=== PATIENT | female | born 1940 | race African-American/Black ===

== ENCOUNTER 2022-06-03 15:17 | Emergency (ER) | payer OTHER ==
--- OUTSIDE RECORDS SUMMARY | 2022-06-03 15:33 | XMS REPORT | Continuity of Care Document ---
:1940 Author Organization [facility] t Address [address] [place] [address] Care Team Providers Name Role Phone Génesis GROVES, Virgen Morales Primary Care Physician [phone] Paddy Gregory MD Attending Clinician Génesis GROVES, Virgen Morales Attending Clinician Kasie Shell LVN Attending Clinician Unavailable Nena GROVES, Dhiraj Nickerson Attending Clinician Herbert GROVES, Jorge Luis Topete Attending Clinician Marlyn Nguyen Attending Clinician Unavailable Arturo Longoria MD Attending Clinician Becker MD, Paul Christensen Attending Clinician [phone] Joni Ellington MD Attending Clinician Poonam Degroot DO Attending Clinician Marlin Carver MA Attending Clinician Unavailable Doretha Hernandez MA Attending Clinician Unavailable Sheila Santana MA Attending Clinician Unavailable Susy Shell MA Attending Clinician Unavailable Lane Hinkle MD Attending Clinician Medardo Jett LCSW Attending Clinician Unavailable Dwayne Cast, Chitra Sharp Attending Clinician Deisy Ramírez MA Attending Clinician Unavailable Vince Uriostegui MD Attending Clinician Angel Ross Attending Clinician Unavailable Rod_S_AH Attending Clinician Unavailable Dianneo_A_AH Attending Clinician Unavailable RANJIT FU Attending Clinician Unavailable JUVE WHITE Attending Clinician Unavailable MD JUVE WHITE Attending Clinician Unavailable MOHINI NINO Attending Clinician Unavailable JONI ELLINGTON Admitting Clinician Unavailable MD PAUL BECKER Admitting Clinician Unavailable MckaylaS_BOB Admitting Clinician Unavailable Araceli_A_AH Admitting Clinician Unavailable JUVE WHITE Admitting Clinician Unavailable MD JUVE WHITE Admitting Clinician Unavailable MOHINI NINO Admitting Clinician Unavailable Payers Payer Name Policy Type Policy Number Effective Date Expiration Date S [facility] [place] - [id number] 7212-01-01 [employer] 00:00:00 (MEDICARE REPLACEMENT/ADVANT AGE - HMO) Problems Condition Condition Condition Status Onset Resolution Last Treating Co mments Source Name Details Category Date Date Treatment Clinician Date Need for Need for Disease Active 2020-09 Metho di vaccinatio vaccinatio 0 [address] n n 00:00: Hospita 00 l Gastroesop Gastroesop Disease Active 2020-09 M ethodi hageal hageal 0 st reflux reflux 00:00: Hospita disease disease 00 l without without esophagiti esophagiti s s Finger Finger Disease Active [facility] clubbing clubbing 05-23 st 00:00: Hospita 00 l Obstructiv Obstructiv Disease Active M ethodi e sleep e sleep 05-23 apnea apnea 00:00: Hospita 00 l Vitamin D Vitamin D Disease Active Met hodi deficiency deficiency 05-26 st 00:00: Hospita 00 l Vitamin Vitamin Disease Active [facility] B12 B12 9 st deficiency deficiency 00:00: Ho spita 00 l Coronary Coronary Problem Active Roy ge arterioscl Arterioscl 4-24 Fa kim erosis erosis 00:00: Practic 00 e Arthritis Arthritis Problem Active Ciara umm 4-24 Family 00:00: Practic 00 e Arthritis Arthritis Disease Active Met hodi of right of right 2-02 st knee knee 00:00: Hospita 00 l History of History of Disease Active 2020-0 M ethodi total knee total knee 2-02 st arthroplas arthroplas 00:00: Ho spita ty, left ty, left 00 l 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 umm major Major 2 Family depression Depression 00:00: Pr actic 00 e Hyperlipid Hyperlipid Problem Active 2018-09 V illage emia emia 09-21 Family 00:00: Practic 00 e Congestive Congestive Problem Active 2018-09 V illage heart Heart 09-21 Family failure Failure 00:00: Practic 00 e Gastroesop Gastroesop Problem Active 2018-09 V illage hageal hageal 09-21 Family reflux Reflux 00:00: Practic disease Disease 00 e Status Status Disease Active 2018-09 Methodi post left post left 0-25 st knee knee 00:00: Hospita replacemen replacemen 00 l t t Arthritis Arthritis Disease Active 2018-09 Met hodi of left of left 0-03 st knee knee 00:00: Hospita 00 l Chronic Chronic Disease Active [facility]i constipati constipati 8-07 st on on 00:00: Hospita 00 l Primary Primary Disease Active Methodi osteoarthr osteoarthr 8-07 st itis of itis of 00:00: Hospita both knees both knees 00 l Acute pain Acute pain Disease Active 2017-09 M ethodi of right of right 0-26 st shoulder shoulder 00:00: Hospit a 00 l Primary Primary Disease Active 2017-09 Methodi osteoarthr osteoarthr 0-26 st itis of itis of 00:00: Hospita right right 00 l shoulder shoulder Granulomat Granulomat Disease Active 2017-09 M ethodi ous ous 0-17 st gastritis gastritis 00:00: Hosp tk 00 l Chronic Chronic Disease Active 2017-09 Methodi gastritis gastritis 0-17 st without without 00:00: Hospita bleeding bleeding 00 l Ventral Ventral Disease Active Last Methodi hernia hernia 9-[address] without without 00:00: t & Plan: Hospi ta obstructio obstructio 00 Formattin l n or n or g of this gangrene gangrene note might be different from the original. The patient has a likely ventral hernia. I will obtain a CT scan of the abdomen and pelvis. I spoke to Dr. Barrett about this patient. He agrees with a repeat CT scan. I will also attempt to obtain her outside CT scan from Dr. Costello. Intestinal Intestinal Disease Active M ethodi metaplasia metaplasia 05-06 st of gastric of gastric 00:00: Ho spita mucosa mucosa 00 l Non-caseat Non-caseat Disease Active M ethodi ing ing 905 st granuloma granuloma 00:00: Hosp tk of stomach of stomach 00 l DDD DDD Disease Active Method[facility] (degenerat (degenerat 8 st enrike disc enrike disc 00:00: Hospit a disease), disease), 00 l cervical cervical Degenerati Degenerati Disease Active M ethodi ve disc ve disc 8 st disease, disease, 00:00: Hospit a lumbar lumbar 00 l Arthritis Arthritis Disease Active Met hodi of both of both 04-22 st knees knees 00:00: Hospita 00 l Right Right Disease Active [facility] wrist pain wrist pain 04-22 st 00:00: Hospita 00 l Dementia Dementia Disease Active Metho di without without 04-22 st behavioral behavioral 00:00: Ho spita disturbanc disturbanc 00 l e e Closed Closed Disease Active [facility] fracture fracture 04-22 st of right of right 00:00: Hospit a distal distal 00 l radius radius ILD ILD Disease Active Last [facility] (interstit (interstit 04-[address] ial lung ial lung 00:00: t & Plan: Hos paulina disease) disease) 00 Formattin l g of this note might be different from the original. 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 Although her CT pattern is not very consisten t but I think predomina nt GGO in lower lobes is due to aspiratio nShe is frankly aspiratin g. I had explained her aspiratio n precautio ns in detail last time and had recommend ed her to use wedge and sleep propped upShe has still not done thatHas not seen GI physician Has stopped azathiopr ineHer crypto/ CMV antigen from plasma are negativeC onsider bronchosc opy with BAL, apply for Esbriet. Mailed Donnielle Tinea Tinea Disease Active Methodi pedis of pedis of 7 st both feet both feet 00:00: Hosp tk 00 l ACS (acute ACS (acute Disease Active M ethodi coronary coronary 03-21 st syndrome) syndrome) 00:00: Hosp tk 00 l Pneumonia Pneumonia Disease Active Met hodi of both of both 7-20 st lower lower 00:00: Hospita lobes due lobes due 00 l to to infectious infectious organism organism Persistent Persistent Disease Active 2016-09 M ethodi headaches headaches 011 st 00:00: Hospita 00 l Surgical Surgical Disease Active Overview: Me thodi menopause menopause 01-30 Formattin s t 00:00: g of this Hospita 00 note l might be different from the original. Total hysterect mallika 1974 for benign reasons per pt Peripheral Peripheral Disease Active M ethodi neuropathy neuropathy 01-30 st 00:00: Hospita 00 l Polyarthri Polyarthri Disease Active M ethodi tis tis 01-30 st 00:00: Hospita 00 l Eosinophil Eosinophil Disease Active Last M ethodi ic ic 01-[address] gastritis gastritis 00:00: t & Plan: H ospita 00 Formattin l g of this note might be different from the original. Patient has been diagnosed with erosive gastritis . She had prior endoscopy which showed eosinophi lic gastritis and was started on imuran. I had suggested her to stop it. 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 I am not sure if its sarcoidos is. Her CT chest doesn't look like sarcoidos is. She had mesh. Could be possible for foreign body granuloma Will discuss with GI attending Has bad hiatal herniaShe needs to follow aspiratio n precautio ns Mixed Mixed Disease Active Methodi hyperlipid hyperlipid 01-30 emia emia 00:00: Hospita 00 l Weight Weight Disease Active Method[facility] loss loss 01-30 st 00:00: Hospita 00 l S/P CABG x S/P CABG x Disease Active Last M ethodi 3 3 01-[address] 00:00: t & Plan: Hospita 00 Formattin l g of this note might be different from the original. Currently appears stable, continue taking plavix,Re commend alternati ve to PPI. Abdominal Abdominal Disease Active Met h[facility] aortic aortic 01-30 st aneurysm aneurysm 00:00: Hospit a (AAA) (AAA) 00 l without without rupture rupture Long-term Long-term Disease Active Met hodi use of use of 01-30 high-risk high-risk 00:00: Hosp tk medication medication 00 l Essential Essential Disease Active Met hodi hypertensi hypertensi 01-30 on on 00:00: Hospita 00 l Allergies, Adverse Reactions, Alerts Allergy Allergy Status Severity Reaction(s) Onset Inactive Treating Comm ents Source Name Type Date Date Clinician Iodine Propensi Active Swelling Hives Method i ty to 01-08 adverse 00:00: Hospita reaction 00 l s to drug Iodine Allergy Active [facility] substanc Practic e e Family History Family Member Diagnosis Comments Start Date Stop Date Source Family member Colon cancer [facility] Family member Colon polyps [facility] Natural brother Other [facility] father Stroke [facility] Maternal grandfather No Known Problems [facility] Maternal grandmother No Known Problems [facility] mother No Known Problems Met [facility] Paternal grandfather No Known Problems [facility] Paternal grandmother No Known Problems [facility] sister Diabetes [facility] sister No Known Problems Met [facility] son No Known Problems Method [facility] Natural son Other [facility] Social History Social Habit Start Date Stop Date Quantity Comments Source History of [facility] sm[facility] Cigarette 2022-05-22 2022-05-22 [facility] pack-[facility] 00[facility]:00 [facility] Tobacco use and 2022-05-22 2022-05-22 Smokeless tobacco [facility] exposure 00:00:00 00:00:00 non-user Hospital Alcohol intake 2022-05-22 2022-05-22 Ex-drinker [facility] 00:[facility] (finding) Hospital Tobacco Comment 2022-05-22 2022-05-22 teens(tried it) Meth odist 00:00:00 00:00:00 Hospital Sex Assigned At [birth year] F [facility] 00:[facility] Smoking Status Start Date Stop Date Source Never Smoker [facility] Ex-smoker 2022-05-22 00:00:00 2022-05-22 [facility]:00:[facility] Medications Ordered Filled Start Stop Current Ordering Indication Dosage Frequency Signature Comments Components Source Medication Medication Date Date Medication? Clinician (SIG) Name Name donepeziL Yes TAKE 1 Method i (ARICEPT) 9-[address] 10 MG 00:00: MOUTH ONCE Hospit a tablet 00 DAILY l NIGHTLY memantine Yes 28mg QD Take 1 [facility] i 28 mg 9-[address] capsule,spr 00:00: (28 mg Hosp tk inkle,ER 00 total) by l 24hr mouth daily. folic acid Yes Take 1 Metho di (FOLVITE) 1 9-[address] MG tablet 00:00: mouth once Ho spita 00 daily l pantoprazol 0 Yes 40mg QD Take 40 mg Methodi e 8-[address] (PROTONIX) 08:49: daily. Hospi ta 40 MG EC 37 l tablet pantoprazol 0 Yes 40mg QD Take 40 mg Method[facility] e 8-[address] (PROTONIX) 08:49: daily. Hospi ta 40 MG EC 37 l tablet pantoprazol 2021-0 Yes 40mg QD Take 40 mg Methodi e 8-[address] (PROTONIX) 08:49: daily. Hospi ta 40 MG EC 37 l tablet furosemide 2021-0 Yes [id number] TAKE 1 [facility] (LASIX) 20 8-[address] mg tablet 00:00: MOUTH ONCE Ho spita 00 DAILY FOR l SWELLING OR BLOOD PRESSURE clopidogreL 2021-0 Yes [id number] Take 1 [facility] (PLAVIX) 75 8-[address] mg tablet 00:00: mouth once Ho spita 00 daily l furosemide 2022-0 Yes [id number] TAKE 1 [facility] (LASIX) 20 8-[address] mg tablet 00:00: MOUTH ONCE Ho spita 00 DAILY FOR l SWELLING OR BLOOD PRESSURE clopidogreL 2-0 Yes [id number] Take 1 [facility] (PLAVIX) 75 8-[address] mg tablet 00:00: mouth once Ho spita 00 daily l furosemide 2022-0 Yes [id number] TAKE 1 [facility] (LASIX) 20 8-[address] mg tablet 00:00: MOUTH ONCE Ho spita 00 DAILY FOR l SWELLING OR BLOOD PRESSURE clopidogreL 2022-0 Yes [id number] Take 1 [facility] (PLAVIX) 75 8-[address] mg tablet 00:00: mouth once Ho spita 00 daily l nitroglycer 2021- No .4mg Place 1 Me thodi in 04-[address] (NITROSTAT) 00:00: 04:59 (0.4 mg Ho spita 0.4 MG SL 00 :00 total) l tablet under the tongue every 5 (five) minutes as needed for chest pain for up to 30 days. nitroglycer 2021- Yes .4mg Place 1 Me thodi in 04-[address] (NITROSTAT) 00:00: 04:59 (0.4 mg Ho spita 0.4 MG SL 00 :00 total) l tablet under the tongue every 5 (five) minutes as needed for chest pain for up to 30 days. nitroglycer 2021- Yes .4mg Place 1 Me thodi in 04-[address] (NITROSTAT) 00:00: 04:59 (0.4 mg Ho spita 0.4 MG SL 00 :00 total) l tablet under the tongue every 5 (five) minutes as needed for chest pain for up to 30 days. alum-mag 2021- No 30mL Q.25D Take 30 mL M ethodi hydroxide-s 04-02 by mouth 4 s t imeth 00:00: 04:59 (four) Hospita (MAALOX 00 :00 times a l PLUS) day before 200-200-20 meals and mg/5 mL nightly suspension for 14 days. alum-mag 0 2021- No 30mL Q.25D Take 30 mL M ethodi hydroxide-s 04-02 by mouth 4 s t imeth 00:00: 04:59 (four) Hospita (MAALOX 00 :00 times a l PLUS) day before 200-200-20 meals and mg/5 mL nightly suspension for 14 days. alum-mag 2021-0 2021- No 30mL Q.25D Take 30 mL M ethodi hydroxide-s 04-02 by mouth 4 s t imeth 00:00: 04:59 (four) Hospita (MAALOX 00 :00 times a l PLUS) day before 200-200-20 meals and mg/5 mL nightly suspension for 14 days. betamethaso 2022- Yes [id number] Q.5D Apply Methodi ne, 03-[address] augmented, 00:00: 04:59 2 (two) Hos paulina (DIPROLENE) 00 :00 times a l 0.05 % gel day. betamethaso 2022- Yes [id number] Q.5D Apply Methodi ne, 03-[address] augmented, 00:00: 04:59 2 (two) Hos paulina (DIPROLENE) 00 :00 times a l 0.05 % gel day. betamethaso 2022- Yes [id number] Q.5D Apply Methodi ne, 03-[address] augmented, 00:00: 04:59 2 (two) Hos paulina (DIPROLENE) 00 :00 times a l 0.05 % gel day. chlorhexidi 2021- No [id number] Q24H Apply Methodi ne 03-[address] (Hibiclens) 00:00: 04:59 daily as H ospita 4 % 00 :00 needed for l external wound care liquid for up to 30 days. chlorhexidi 2021- No [id number] Q24H Apply Methodi ne 03-[address] (Hibiclens) 00:00: 04:59 daily as H ospita 4 % 00 :00 needed for l external wound care liquid for up to 30 days. chlorhexidi 2021- No [id number] Q24H Apply Methodi ne 03-[address] (Hibiclens) 00:00: 04:59 daily as H ospita 4 % 00 :00 needed for l external wound care liquid for up to 30 days. cephalexin 2021- No [id number] 500mg Q.5D Take 1 [facility] (Keflex) 03-[address] 500 MG 00:00: 04:59 (500 mg Hospita capsule 00 :00 total) by l mouth 2 (two) times a day for 10 days. cephalexin 2021- No [id number] 500mg Q.5D Take 1 [facility] (Keflex) 7-29 08-[address] 500 MG 00:00: 04:59 (500 mg Hospita capsule 00 :00 total) by l mouth 2 (two) times a day for 10 days. cephalexin 2021- No [id number] 500mg Q.5D Take 1 [facility] (Keflex) 03-[address] 500 MG 00:00: 04:59 (500 mg Hospita capsule 00 :00 total) by l mouth 2 (two) times a day for 10 days. alendronate 2022- Yes [id number] 35mg Q1W Take 1 [facility] (FOSAMAX) 03-20 tablet (35 st 35 MG 00:00: 04:59 mg total) Hospit a tablet 00 :00 by mouth l every 7 days. Take in the morning with a full glass of water on an empty stomach, do NOT take anything else by mouth or lie down for the next 30 min. alendronate 2022- Yes [id number] 35mg Q1W Take 1 [facility] (FOSAMAX) 03-20 tablet (35 st 35 MG 00:00: 04:59 mg total) Hospit a tablet 00 :00 by mouth l every 7 days. Take in the morning with a full glass of water on an empty stomach, do NOT take anything else by mouth or lie down for the next 30 min. alendronate 2022- Yes [id number] 35mg Q1W Take 1 [facility] (FOSAMAX) 03-20 tablet (35 st 35 MG 00:00: 04:59 mg total) Hospit a tablet 00 :00 by mouth l every 7 days. Take in the morning with a full glass of water on an empty stomach, do NOT take anything else by mouth or lie down for the next 30 min. carvediloL Yes [id number] TAKE 1 M ethodi (COREG) 7-[address] 6.25 MG 00:00: MOUTH Hospita tablet 00 TWICE l DAILY WITH MEALS FOR HEART AND FOR BLOOD PRESSURE carvediloL Yes [id number] TAKE 1 M ethodi (COREG) 7-[address] 6.25 MG 00:00: MOUTH Hospita tablet 00 TWICE l DAILY WITH MEALS FOR HEART AND FOR BLOOD PRESSURE carvediloL Yes [id number] TAKE 1 M ethodi (COREG) 7-[address] 6.25 MG 00:00: MOUTH Hospita tablet 00 TWICE l DAILY WITH MEALS FOR HEART AND FOR BLOOD PRESSURE predniSONE 2022- Yes 2.5mg QD Take 1 Met hodi (DELTASONE) 03-[address] 2.5 mg 00:00: 04:59 (2.5 mg Hospita tablet 00 :00 total) by l mouth daily. azaTHIOprin 2022- Yes [id number] 50mg QD Take 1 Methodi e (IMURAN) 03-05 tablet (50 st 50 mg 00:00: 04:59 mg total) Hospit a tablet 00 :00 by mouth l daily. predniSONE 2022- Yes 2.5mg QD Take 1 Met hodi (DELTASONE) 03-[address] 2.5 mg 00:00: 04:59 (2.5 mg Hospita tablet 00 :00 total) by l mouth daily. azaTHIOprin 2022- Yes [id number] 50mg QD Take 1 Methodi e (IMURAN) 03-05 tablet (50 st 50 mg 00:00: 04:59 mg total) Hospit a tablet 00 :00 by mouth l daily. predniSONE 2022- Yes 2.5mg QD Take 1 Met hodi (DELTASONE) 03-[address] 2.5 mg 00:00: 04:59 (2.5 mg Hospita tablet 00 :00 total) by l mouth daily. azaTHIOprin 2022- Yes [id number] 50mg QD Take 1 Methodi e (IMURAN) 03-05 tablet (50 st 50 mg 00:00: 04:59 mg total) Hospit a tablet 00 :00 by mouth l daily. predniSONE 2021- No 2.5mg QD Take 2.5 M ethodi (DELTASONE) 6-29 06-[address] 2.5 mg 14:41: 00:00 mouth Hospita tablet 53 :00 daily. l predniSONE 2021- No 2.5mg QD Take 2.5 M ethodi (DELTASONE) 6-29 06-[address] 2.5 mg 14:41: 00:00 mouth Hospita tablet 53 :00 daily. l predniSONE 2021- No 2.5mg QD Take 2.5 M ethodi (DELTASONE) 02-27 06-[address] 2.5 mg 14:41: 00:00 mouth Hospita tablet 53 :00 daily. l predniSONE 2021- No Take 1 Meth mark (DELTASONE) 02-27-[address] 2.5 mg 00:00: 00:00 mouth once Hosp tk tablet 00 :00 daily l predniSONE 2021- No 5mg QD Take 1 Meth mark (DELTASONE) 02-27-05 tablet (5 st 5 mg tablet 00:00: 00:00 mg total) Hospita 00 :00 by mouth l daily for 90 days. predniSONE 2021- No Take 1 Meth mark (DELTASONE) 02-27-[address] 2.5 mg 00:00: 00:00 mouth once Hosp tk tablet 00 :00 daily l predniSONE 2021- No 5mg QD Take 1 Meth mark (DELTASONE) 02-27-05 tablet (5 st 5 mg tablet 00:00: 00:00 mg total) Hospita 00 :00 by mouth l daily for 90 days. predniSONE 2021- No Take 1 Meth mark (DELTASONE) 02-27-[address] 2.5 mg 00:00: 00:00 mouth once Hosp tk tablet 00 :00 daily l predniSONE 2021- No 5mg QD Take 1 Meth mark (DELTASONE) 02-27-05 tablet (5 st 5 mg tablet 00:00: 00:00 mg total) Hospita 00 :00 by mouth l daily for 90 days. azaTHIOprin 2021- No [id number] 50mg QD Take 1 Methodi e (IMURAN) 02-14- tablet (50 st 50 mg 00:00: 00:00 mg total) Hospit a tablet 00 :00 by mouth l daily. azaTHIOprin 2021-2021- No [id number] 50mg QD Take 1 Methodi e (IMURAN) 02-14-05 tablet (50 st 50 mg 00:00: 00:00 mg total) Hospit a tablet 00 :00 by mouth l daily. azaTHIOprin No [id number] 50mg QD Take 1 Methodi e (IMURAN) 02-14 tablet (50 st 50 mg 00:00: 00:00 mg total) Hospit a tablet 00 :00 by mouth l daily. predniSONE 2021- No 5mg QD Take 5 mg M ethodi (DELTASONE) 02-[address] 5 mg tablet 12:14: 00:00 daily. Hos paulina 54 :00 l predniSONE 2021- No 5mg QD Take 5 mg M ethodi (DELTASONE) 02-[address] 5 mg tablet 12:14: 00:00 daily. Hos paulina 54 :00 l predniSONE 2021- No 5mg QD Take 5 mg M ethodi (DELTASONE) 02-[address] 5 mg tablet 12:14: 00:00 daily. Hos paulina 54 :00 l folic acid Yes Take 1 Metho di (FOLVITE) 1 02-[address] MG tablet 00:00: mouth once Ho spita 00 daily l folic acid 0 Yes Take 1 Metho di (FOLVITE) 1 02-[address] MG tablet 00:00: mouth once Ho spita 00 daily l folic acid 2021-0 2021- No Take 1 Meth mark (FOLVITE) 1 02-[address] MG tablet 00:00: 00:00 mouth once H ospita 00 :00 daily l predniSONE 2021-2021- No Take 1 Meth mark (DELTASONE) 02-[address] 5 mg tablet 00:00: 00:00 mouth once Hospita 00 :00 daily l predniSONE 2021-2021- No Take 1 Meth mark (DELTASONE) 02-[address] 5 mg tablet 00:00: 00:00 mouth once Hospita 00 :00 daily l predniSONE 2021-2021- No Take 1 Meth mark (DELTASONE) 02-[address] 5 mg tablet 00:00: 00:00 mouth once Hospita 00 :00 daily l azaTHIOprin 2021 No [id number] 50mg QD Take 1 Methodi e (IMURAN) 02-07 tablet (50 st 50 mg 00:00: 00:00 mg total) Hospit a tablet 00 :00 by mouth l daily. azaTHIOprin No [id number] 50mg QD Take 1 Methodi e (IMURAN) 02-07 tablet (50 st 50 mg 00:00: 00:00 mg total) Hospit a tablet 00 :00 by mouth l daily. azaTHIOprin No [id number] 50mg QD Take 1 Methodi e (IMURAN) 02-07 tablet (50 st 50 mg 00:00: 00:00 mg total) Hospit a tablet 00 :00 by mouth l daily. isosorbide 2022- No [id number] 30mg QD Take 1 Methodi mononitrate 02-01- tablet (30 s t (IMDUR) 30 00:00: 04:59 mg total) H ospita MG 24 hr 00 :00 by mouth l tablet daily. isosorbide 2022- No [id number] 30mg QD Take 1 [facility]i mononitrate 02-01- tablet (30 s t (IMDUR) 30 00:00: 04:59 mg total) H ospita MG 24 hr 00 :00 by mouth l tablet daily. isosorbide 2022- No [id number] 30mg QD Take 1 Methodi mononitrate 02-01- tablet (30 s t (IMDUR) 30 00:00: 04:59 mg total) H ospita MG 24 hr 00 :00 by mouth l tablet daily. azaTHIOprin No [id number] Take 1 Methodi e (IMURAN) 01-21- tablet by st 50 mg 00:00: 00:00 mouth once Hospi ta tablet 00 :00 daily l azaTHIOprin No [id number] Take 1 Methodi e (IMURAN) 01-21- tablet by st 50 mg 00:00: 00:00 mouth once Hospi ta tablet 00 :00 daily l azaTHIOprin No [id number] Take 1 Methodi e (IMURAN) -23 06-[address] 50 mg 00:00: 00:00 mouth once Hospi ta tablet 00 :00 daily l clopidogreL 2-0 2022- No [id number] Take 1 [facility] (PLAVIX) 75 5-16 08-[address] mg tablet 00:00: 00:00 mouth once H ospita 00 :00 daily l furosemide 2022-0 2022- No [id number] TAKE 1 [facility] (LASIX) 20 5-16 08-[address] mg tablet 00:00: 00:00 MOUTH ONCE H ospita 00 :00 DAILY FOR l SWELLING OR BLOOD PRESSURE clopidogreL 2021-0 2022- No [id number] Take 1 [facility] (PLAVIX) 75 5-16 08-[address] mg tablet 00:00: 00:00 mouth once H ospita 00 :00 daily l furosemide 2022-0 2022- No [id number] TAKE 1 [facility] (LASIX) 20 5-16 08-[address] mg tablet 00:00: 00:00 MOUTH ONCE H ospita 00 :00 DAILY FOR l SWELLING OR BLOOD PRESSURE clopidogreL 2021-0 2022- No [id number] Take 1 [facility] (PLAVIX) 75 5-16 08-[address] mg tablet 00:00: 00:00 mouth once H ospita 00 :00 daily l furosemide 2022-0 2022- No [id number] TAKE 1 [facility] (LASIX) 20 5-16 08-[address] mg tablet 00:00: 00:00 MOUTH ONCE H ospita 00 :00 DAILY FOR l SWELLING OR BLOOD PRESSURE donepeziL 2021-0 Yes TAKE 1 Method i (ARICEPT) 5-[address] 10 MG 00:00: MOUTH ONCE Hospit a tablet 00 DAILY l NIGHTLY memantine 2021-0 Yes 28mg QD Take 1 Method i 28 mg 5-[address] capsule,spr 00:00: (28 mg Hosp tk inkle,ER 00 total) by l 24hr mouth daily. donepeziL 2021-0 Yes TAKE 1 Method i (ARICEPT) 5-[address] 10 MG 00:00: MOUTH ONCE Hospit a tablet 00 DAILY l NIGHTLY memantine 2-0 Yes 28mg QD Take 1 Method i 28 mg 5-[address] capsule,spr 00:00: (28 mg Hosp tk inkle,ER 00 total) by l 24hr mouth daily. donepeziL 2021- No TAKE 1 Metho di (ARICEPT) 01-[address] 10 MG 00:00: 00:00 MOUTH ONCE Hospi ta tablet 00 :00 DAILY l NIGHTLY memantine 2021- No 28mg QD Take 1 [facility] 28 mg 01-[address] capsule,spr 00:00: 00:00 (28 mg [facility],ER 00 :00 total) by l 24hr mouth daily. clopidogreL 2021- No [id number] Take 1 [facility] (PLAVIX) 75 5-04 05-[address] mg tablet 00:00: 00:00 mouth once [facility] 00 :00 daily l furosemide 2021- No [id number] TAKE 1 [facility] (LASIX) 20 5-04 05-[address] mg tablet 00:00: 00:00 MOUTH ONCE [facility] 00 :00 DAILY FOR l SWELLING OR BLOOD PRESSURE clopidogreL 2021- No [id number] Take 1 [facility] (PLAVIX) 75 5-04 05-[address] mg tablet 00:00: 00:00 mouth once [facility] 00 :00 daily l furosemide 2021-2021- No [id number] TAKE 1 [facility] (LASIX) 20 5-04 05-[address] mg tablet 00:00: 00:00 MOUTH ONCE [facility] 00 :00 DAILY FOR l SWELLING OR BLOOD PRESSURE clopidogreL 2021- No [id number] Take 1 [facility] (PLAVIX) 75 5-04 05-[address] mg tablet 00:00: 00:00 mouth once [facility] 00 :00 daily l furosemide 2021-2021- No [id number] TAKE 1 [facility] (LASIX) 20 5-04 05-[address] mg tablet 00:00: 00:00 MOUTH ONCE [facility] 00 :00 DAILY FOR l SWELLING OR BLOOD PRESSURE gabapentin 2021-0 Yes Take 2 [facility] (NEURONTIN) 5-[address] 100 mg 00:00: by mouth [facility]osp[facility] capsule 00 once daily l gabapentin 2021- Yes Take 2 [facility] (NEURONTIN) 5-[address] 100 mg 00:00: by mouth [facility]osp[facility] capsule 00 once daily l gabapentin Yes Take 2 [facility] (NEURONTIN) 5-[address] 100 mg 00:00: by mouth [facility]osp[facility] capsule 00 once daily l predniSONE 2021- No 2.5mg QD Take 1 [facility] (DELTASONE) 12-31 05-[address] 2.5 mg 00:00: 00:00 (2.5 mg [facility]ospita tablet 00 :00 total) by l mouth daily. predniSONE 2021- No 2.5mg QD Take 1 [facility] (DELTASONE) 12-31 05-[address] 2.5 mg 00:00: 00:00 (2.5 mg [facility]osp[facility] tablet 00 :00 total) by l mouth daily. predniSONE 2021- No 2.5mg QD Take 1 [facility] (DELTASONE) 12-31-[address] 2.5 mg 00:00: 00:00 (2.5 mg [facility]ospita tablet 00 :00 total) by l mouth daily. predniSONE 2021- No Take 1 [facility] (DELTASONE) - 05-[address] 5 mg tablet 00:00: 04:59 mouth once Hospita 00 :00 daily for l 30 days predniSONE 2021-2021- No Take 1 [facility] (DELTASONE) 4- 05-[address] 5 mg tablet 00:00: 04:59 mouth once [facility]ospita 00 :00 daily for l 30 days predniSONE 2021-2021- No Take 1 [facility] (DELTASONE) - 05-[address] 5 mg tablet 00:00: 04:59 mouth once Hospita 00 :00 daily for l 30 days memantine 2021-2021- No 10mg Q.5D Take 10 mg [facility] (NAMENDA) 11-[address] 10 MG 08:52: 00:00 (two) [facility]ospita tablet 36 :00 times a l day. memantine 2021-2021- No 10mg Q.5D Take 10 mg [facility] (NAMENDA) 11-26- by mouth 2 st 10 MG 08:52: 00:00 (two) [facility]ospita tablet 36 :00 times a l day. memantine 2021- No 10mg Q.5D Take 10 mg [facility] (NAMENDA) 11-[address] 10 MG 08:52: 00:00 (two) [facility]ospita tablet 36 :00 times a l day. azaTHIOprin 2021-2021- No [id number] 50mg QD Take 1 [facility] (IMURAN) 11-26 tablet (50 st 50 mg 00:00: 00:00 mg total) Hospit a tablet 00 :00 by mouth l daily. azaTHIOprin 2021- No [id number] 50mg QD Take 1 [facility] (IMURAN) 11-26 tablet (50 st 50 mg 00:00: 00:00 mg total) Hospit a tablet 00 :00 by mouth l daily. azaTHIOprin 2021- No [id number] 50mg QD Take 1 [facility] (IMURAN) 11-26 tablet (50 st 50 mg 00:00: 00:00 mg total) Hospit a tablet 00 :00 by mouth l daily. predniSONE 2021- No 5 mg daily [facility] 5 mg 11-[address] tablet,malick 00:00: 00:00 month then Hospita yed release 00 :00 2.5 mg l (DR/EC) daily predniSONE 2021- No 5 mg daily [facility] 5 mg 11-[address] tablet,malick 00:00: 00:00 month then Hospita yed release 00 :00 2.5 mg l (DR/EC) daily predniSONE 2021- No 5 mg daily [facility] 5 mg 11-[address] tablet,malick 00:00: 00:00 month then Hospita yed release 00 :00 2.5 mg l (DR/EC) daily donepeziL 2021- No TAKE 1 [facility] (ARICEPT) 11-[address] 10 MG 00:00: 00:00 MOUTH ONCE [facility] ta tablet 00 :00 DAILY l NIGHTLY ( STARTING MONTH 2) donepeziL 2021- No TAKE 1 [facility] (ARICEPT) 11-[address] 10 MG 00:00: 00:00 MOUTH ONCE [facility] ta tablet 00 :00 DAILY l NIGHTLY ( STARTING MONTH 2) donepeziL 2021- No TAKE 1 [facility] (ARICEPT) 11-18-[address] 10 MG 00:00: 00:00 MOUTH ONCE [facility] ta tablet 00 :00 DAILY l NIGHTLY ( STARTING MONTH 2) gabapentin 2021- No 200mg QD Take 2 [facility] (NEURONTIN) 11-08-[address] 100 mg 00:00: 00:00 (200 mg [facility]ospita capsule 00 :00 total) by l mouth daily. gabapentin 2021- No 200mg QD Take 2 [facility] (NEURONTIN) 3-06 05- capsules st 100 mg 00:00: 00:00 (200 mg Hospita capsule 00 :00 total) by l mouth daily. gabapentin 2021- No 200mg QD Take 2 [facility] (NEURONTIN) 11-08- capsules st 100 mg 00:00: 00:00 (200 mg [facility]osp[facility] capsule 00 :00 total) by l mouth daily. atorvastati 2022- No [id number] 20mg QD Take 1 [facility] (Lipitor) 10-24- tablet (20 s t 20 mg 00:00: 05:59 mg total) Hospit a tablet 00 :00 by mouth l daily. Default OP ins irbesartan 2022- No [id number] 75mg QD Take 1 [facility] (Avapro) 75 10-24-24 tablet (75 s t MG tablet 00:00: 05:59 mg total) [facility] 00 :00 by mouth l nightly. atorvastati 2022- No [id number] 20mg QD Take 1 [facility] (Lipitor) 10-24-24 tablet (20 s t 20 mg 00:00: 05:59 mg total) Hospit a tablet 00 :00 by mouth l daily. Default OP ins irbesartan 2022- No [id number] 75mg QD Take 1 [facility] (Avapro) 75 10-24-24 tablet (75 s t MG tablet 00:00: 05:59 mg total) [facility] 00 :00 by mouth l nightly. atorvastati 2022- No [id number] 20mg QD Take 1 [facility] (Lipitor) 10-24 tablet (20 s t 20 mg 00:00: 05:59 mg total) Hospit a tablet 00 :00 by mouth l daily. Default OP ins irbesartan 2022- No [id number] 75mg QD Take 1 [facility] (Avapro) 75 10-24 tablet (75 s t MG tablet 00:00: 05:59 mg total) [facility] 00 :00 by mouth l nightly. colesevelam 2021- No [id number] 1875mg Q.5D Take 3 [facility] (WelChoL) 10-[address] 625 mg 00:00: 00:00 (1,875 mg [facility] ta tablet 00 :00 total) by l mouth 2 (two) times a day with meals. colesevelam 2021- No [id number] 1875mg Q.5D Take 3 [facility] (WelChoL) 10-[address] 625 mg 00:00: 00:00 (1,875 mg [facility] ta tablet 00 :00 total) by l mouth 2 (two) times a day with meals. colesevelam 2021- No [id number] 1875mg Q.5D Take 3 [facility] (WelChoL) 10-[address] 625 mg 00:00: 00:00 (1,875 mg [facility] tablet 00 :00 total) by l mouth 2 (two) times a day with meals. diclofenac 2021- No Q.25D Apply [facility] (Voltaren) 2- 05-[address] 1 % gel 00:00: 00:00 4 (four) [facility] 00 :00 times a l day. diclofenac 2021-2021- No Q.25D Apply [facility] (Voltaren) 2-15 05-[address] 1 % gel 00:00: 00:00 4 (four) [facility] ta 00 :00 times a l day. diclofenac 2021-2021- No Q.25D Apply [facility] (Voltaren) 2- 05-[address] 1 % gel 00:00: 00:00 4 (four) [facility] ta 00 :00 times a l day. gabapentin 2021-2021- No 200mg QD Take 2 [facility] (NEURONTIN) 2-15 03-[address] 100 mg 00:00: 00:00 (200 mg [facility]osp[facility] capsule 00 :00 total) by l mouth daily. gabapentin 2021-2021- No 200mg QD Take 2 [facility] (NEURONTIN) 2-15 03-[address] 100 mg 00:00: 00:00 (200 mg [facility]osp[facility] capsule 00 :00 total) by l mouth daily. gabapentin 2021-2021- No 200mg QD Take 2 [facility] (NEURONTIN) 2-15 03-[address] 100 mg 00:00: 00:00 (200 mg [facility]osp[facility] capsule 00 :00 total) by l mouth daily. predniSONE 2021-2021- No 5mg QD Take 5 mg [facility] (DELTASONE) 2-[address] 5 mg tablet 08:50: 00:00 daily. [facility] 11 :00 l predniSONE 2021-0 2021- No 5mg QD Take 5 mg [facility] (DELTASONE) 2- by mouth st 5 mg tablet 08:50: 00:00 daily. [facility] 11 :00 l predniSONE 2021-0 2021- No 5mg QD Take 5 mg [facility] (DELTASONE) 2-[address] 5 mg tablet 08:50: 00:00 daily. [facility] 11 :00 l predniSONE 2021-0 2- No Take 1 [facility] (DELTASONE) 2 03-[address] 5 mg tablet 00:00: 05:59 mouth once [facility]ospita 00 :00 daily l predniSONE 2021-0 2021- No Take 1 [facility] (DELTASONE) 2 03-[address] 5 mg tablet 00:00: 05:59 mouth once [facility]osp[facility] 00 :00 daily l predniSONE 2021-0 2021- No Take 1 [facility] (DELTASONE) 2 03-[address] 5 mg tablet 00:00: 05:59 mouth once [facility]osp[facility] 00 :00 daily l predniSONE 2021-0 2021- No 5mg QD Take 1 [facility] (DELTASONE) 10-08 tablet (5 st 5 mg tablet 00:00: 00:00 mg total) Hospita 00 :00 by mouth l daily for 30 days. predniSONE 2021- No 5mg QD Take 1 [facility] (DELTASONE) 10-08 tablet (5 st 5 mg tablet 00:00: 00:00 mg total) [facility]ospita 00 :00 by mouth l daily for 30 days. predniSONE 2021- No 5mg QD Take 1 [facility] (DELTASONE) 10-08 tablet (5 st 5 mg tablet 00:00: 00:00 mg total) [facility]ospita 00 :00 by mouth l daily for 30 days. carvediloL 2021- No [id number] TAKE 1 [facility] (COREG) 09-[address] 6.25 MG 00:00: 00:00 MOUTH [facility]osp[facility] tablet 00 :00 TWICE l DAILY WITH MEALS FOR HEART AND BLOOD PRESSURE carvediloL 2021- No [id number] TAKE 1 [facility] (COREG) 09-[address] 6.25 MG 00:00: 00:00 MOUTH [facility]ospita tablet 00 :00 TWICE l DAILY WITH MEALS FOR HEART AND BLOOD PRESSURE carvediloL 2021- No [id number] TAKE 1 [facility] (COREG) 09-[address] 6.25 MG 00:00: 00:00 MOUTH [facility]osp[facility] tablet 00 :00 TWICE l DAILY WITH MEALS FOR HEART AND BLOOD PRESSURE memantine 2021- No 10mg Q.5D Take 1 [facility] (Namenda) 09-27-12 tablet (10 st 10 MG 00:00: 00:00 mg total) Hospit a tablet 00 :00 by mouth 2 l (two) times a day. memantine 2021- No 10mg Q.5D Take 1 [facility] (Namenda) 09-27-12 tablet (10 st 10 MG 00:00: 00:00 mg total) Hospit a tablet 00 :00 by mouth 2 l (two) times a day. memantine 2021- No 10mg Q.5D Take 1 [facility] (Namenda) 09-27-12 tablet (10 st 10 MG 00:00: 00:00 mg total) Hospit a tablet 00 :00 by mouth 2 l (two) times a day. memantine 2021- No Wk 1: 5 mg [facility] (Namenda) 5 09-[address] MG tablet 00:00: 00:00 W2: 5 mg [facility] 00 :00 twice l daily W3:10 mg am 5 mg night memantine 2021- No Wk 1: 5 mg [facility] (Namenda) 5 09-[address] MG tablet 00:00: 00:00 W2: 5 mg [facility] 00 :00 twice l daily W3:10 mg am 5 mg night memantine 2021- No Wk 1: 5 mg [facility] (Namenda) 5 09-[address] MG tablet 00:00: 00:00 W2: 5 mg [facility] 00 :00 twice l daily W3:10 mg am 5 mg night gabapentin 2021- No [facility] (NEURONTIN) 09-18 02-15 st 100 mg 00:00: 00:00 [facility]osp[facility] capsule 00 :00 l gabapentin 2021- No [facility] (NEURONTIN) 09-18 02-15 st 100 mg 00:00: 00:00 [facility]osp[facility] capsule 00 :00 l gabapentin 2021- No [facility] (NEURONTIN) 09-18 02-15 st 100 mg 00:00: 00:00 [facility]osp[facility] capsule 00 :00 l folic acid 2020-09- No 1mg QD Take 1 [facility] (FOLVITE) 1 -13 tablet (1 st MG tablet 00:00: 00:00 mg total) [facility] 00 :00 by mouth l daily. folic acid 2020-09- No 1mg QD Take 1 [facility] (FOLVITE) 1 -13 tablet (1 st MG tablet 00:00: 00:00 mg total) [facility] 00 :00 by mouth l daily. folic acid 2020-09- No 1mg QD Take 1 [facility] (FOLVITE) 1 -13 tablet (1 st MG tablet 00:00: 00:00 mg total) [facility] 00 :00 by mouth l daily. clopidogreL 2020-09- No [id number] 75mg QD Take 1 [facility] (PLAVIX) 75 13 05-04 tablet (75 s t mg tablet 00:00: 00:00 mg total) [facility] 00 :00 by mouth l daily. clopidogreL 2020-09- No [id number] 75mg QD Take 1 [facility] (PLAVIX) 75 213 05-04 tablet (75 s t mg tablet 00:00: 00:00 mg total) [facility] 00 :00 by mouth l daily. clopidogreL 2020-09- No [id number] 75mg QD Take 1 [facility] (PLAVIX) 75 10-14-04 tablet (75 s t mg tablet 00:00: 00:00 mg total) [facility] 00 :00 by mouth l daily. gabapentin 2020-09- No [id number] 100mg QD Take 1 [facility] (Neurontin) 2- capsule st 100 mg 00:00: 05:59 (100 mg [facility]osp[facility] capsule 00 :00 total) by l mouth nightly for 30 days. gabapentin 2020-09- No [id number] 100mg QD Take 1 [facility] (Neurontin) 209-[address] 100 mg 00:00: 05:59 (100 mg [facility]osp[facility] capsule 00 :00 total) by l mouth nightly for 30 days. gabapentin 2020-09- No [id number] 100mg QD Take 1 [facility] (Neurontin) 209-[address] 100 mg 00:00: 05:59 (100 mg [facility]osp[facility] capsule 00 :00 total) by l mouth nightly for 30 days. donepeziL 2020-09- No 5mg QD Take 1 [facility] (Aricept) 5 09-19 tablet (5 st MG tablet 00:00: 00:00 mg total) [facility] 00 :00 by mouth l nightly. donepeziL 2020-09- No 5mg QD Take 1 [facility] (Aricept) 5 09-19 tablet (5 st MG tablet 00:00: 00:00 mg total) [facility] 00 :00 by mouth l nightly. donepeziL 2020-09- No 5mg QD Take 1 [facility] (Aricept) 5 09-19 tablet (5 st MG tablet 00:00: 00:00 mg total) [facility] 00 :00 by mouth l nightly. donepeziL 2020-09 No 10mg QD Take 1 [facility] (Aricept) 09-19 12-13 tablet (10 st 10 MG 00:00: 00:00 mg total) Hospit a tablet 00 :00 by mouth l nightly. donepeziL 2020-09 No 10mg QD Take 1 [facility] (Aricept) 09-1913 tablet (10 st 10 MG 00:00: 00:00 mg total) Hospit a tablet 00 :00 by mouth l nightly. donepeziL 2020-09 No 10mg QD Take 1 [facility] (Aricept) 09-19 tablet (10 st 10 MG 00:00: 00:00 mg total) Hospit a tablet 00 :00 by mouth l nightly. aspirin 2020-09 No 81mg QD Chew 81 mg [facility] (ASPIRIN 09-[address] LOW-STRENGT 08:56: 00:00 [facility] H) 81 mg 14 :00 l chewable tablet aspirin 2020-09 No 81mg QD Chew 81 mg [facility] (ASPIRIN 09-[address] LOW-STRENGT 08:56: 00:00 [facility] H) 81 mg 14 :00 l chewable tablet aspirin 2020-09 No 81mg QD Chew 81 mg [facility] (ASPIRIN 09-[address] LOW-STRENGT 08:56: 00:00 [facility]pi ta H) 81 mg 14 :00 l chewable tablet acetaminoph 2020-09 No [id number] 1{tbl} Q6H Take 1 [facility] en-codeine 09-[address] (TYLENOL 08:55: 00:00 mouth [facility]osp[facility] WITH 32 :00 every 6 l CODEINE #3) (six) 300-30 mg hours as per tablet needed for moderate pain .acute pain. acetaminoph 2020-09 No [id number] 1{tbl} Q6H Take 1 [facility] en-codeine 09-[address] (TYLENOL 08:55: 00:00 mouth [facility]osp[facility] WITH 32 :00 every 6 l CODEINE #3) (six) 300-30 mg hours as per tablet needed for moderate pain .acute pain. acetaminoph 2020-09 No [id number] 1{tbl} Q6H Take 1 [facility] en-codeine 09-[address] (TYLENOL 08:55: 00:00 mouth [facility]osp[facility] WITH 32 :00 every 6 l CODEINE #3) (six) 300-30 mg hours as per tablet needed for moderate pain .acute pain. atorvastati 2020-09 No [id number] 40mg QD Take 1 [facility] (LIPITOR) 09-03 tablet (40 s t 40 mg 00:00: 00:00 mg total) Hospit a tablet 00 :00 by mouth l daily. For cholestero l atorvastati 2020-09 No [id number] 40mg QD Take 1 [facility] (LIPITOR) 09-03 tablet (40 s t 40 mg 00:00: 00:00 mg total) Hospit a tablet 00 :00 by mouth l daily. For cholestero l atorvastati 2020-09 No [id number] 40mg QD Take 1 [facility] (LIPITOR) 09-03 tablet (40 s t 40 mg 00:00: 00:00 mg total) Hospit a tablet 00 :00 by mouth l daily. For cholestero l carvediloL 2020-09- No [id number] TAKE 1 [facility] (COREG) 09-[address] 6.25 MG 00:00: 00:00 MOUTH [facility]osp[facility] tablet 00 :00 TWICE l DAILY WITH MEALS FOR HEART AND BLOOD PRESSURE carvediloL 2020-09- No [id number] TAKE 1 [facility] (COREG) 09-[address] 6.25 MG 00:00: 00:00 MOUTH [facility]osp[facility] tablet 00 :00 TWICE l DAILY WITH MEALS FOR HEART AND BLOOD PRESSURE carvediloL 2020-09- No [id number] TAKE 1 [facility] (COREG) 09-[address] 6.25 MG 00:00: 00:00 MOUTH [facility]osp[facility] tablet 00 :00 TWICE l DAILY WITH MEALS FOR HEART AND BLOOD PRESSURE clotrimazol 2020-09- No [id number] Q.5D Apply [facility]-betametha 09-[address] sone 00:00: 00:00 2 (two) [facility]ospita (Lotrisone) 00 :00 times a l 1-0.05 % day. cream clotrimazol 2020-09- No [id number] Q.5D Apply [facility]-betametha 09-[address] sone 00:00: 00:00 2 (two) [facility]osp[facility] (Lotrisone) 00 :00 times a l 1-0.05 % day. cream clotrimazol 2020-09- No [id number] Q.5D Apply [facility]-betametha 09-[address] sone 00:00: 00:00 2 (two) [facility]osp[facility] (Lotrisone) 00 :00 times a l 1-0.05 % day. cream clopidogreL 2020-09- No [id number] 75mg QD Take 1 [facility] (PLAVIX) 75 09-03 12-13 tablet (75 s t mg tablet 00:00: 00:00 mg total) [facility] 00 :00 by mouth l daily. clopidogreL 2020-09- No [id number] 75mg QD Take 1 [facility] (PLAVIX) 75 09-03 12-13 tablet (75 s t mg tablet 00:00: 00:00 mg total) [facility] 00 :00 by mouth l daily. clopidogreL 2020-09- No [id number] 75mg QD Take 1 [facility] (PLAVIX) 75 09-03 12-13 tablet (75 s t mg tablet 00:00: 00:00 mg total) [facility] 00 :00 by mouth l daily. denosumab 2020-09- No [id number] 60mg Inject 1 [facility] (Prolia) 60 09-03 11-04 [id number] mL ([address] mg/mL 00:00: 04:59 total) [facility]ospita syringe 00 :00 under the l syringe skin once for 1 dose. denosumab 2020-09- No [id number] 60mg Inject 1 [facility] (Prolia) 60 09-03 11-04 mL ([address] mg/mL 00:00: 04:59 total) [facility]osp[facility] syringe 00 :00 under the l syringe skin once for 1 dose. denosumab 2020-09- No [id number] 60mg Inject 1 [facility] (Prolia) 60 09-03 11-04 mL ([address] mg/mL 00:00: 04:59 total) [facility]osp[facility] syringe 00 :00 under the l syringe skin once for 1 dose. predniSONE 2020-09- No 5mg QD Take 1 [facility] (DELTASONE) 009-21 tablet (5 st 5 mg tablet 00:00: 05:59 mg total) [facility]ospita 00 :00 by mouth l daily for 90 days. pantoprazol 2020-09 No 40mg QD Take 1 [facility] e 009-21 tablet (40 st (Protonix) 00:00: 05:59 mg total) H [facility]sp[facility] 40 MG EC 00 :00 by mouth l tablet daily for 90 days. predniSONE 2020-09 No 5mg QD Take 1 [facility] (DELTASONE) 009-21 tablet (5 st 5 mg tablet 00:00: 05:59 mg total) [facility]ospita 00 :00 by mouth l daily for 90 days. pantoprazol 2020-09 No 40mg QD Take 1 Met [facility] e 0-09-21 tablet (40 st (Protonix) 00:00: 05:59 mg total) H [facility] 40 MG EC 00 :00 by mouth l tablet daily for 90 days. predniSONE 2020-09 No 5mg QD Take 1 [facility] (DELTASONE) 009-21 tablet (5 st 5 mg tablet 00:00: 05:59 mg total) [facility]ospita 00 :00 by mouth l daily for 90 days. pantoprazol 2020-09 No 40mg QD Take 1 [facility] e 0-22 - tablet (40 st (Protonix) 00:00: 05:59 mg total) H [facility]spita 40 MG EC 00 :00 by mouth l tablet daily for 90 days. furosemide 2020-09- No [id number] TAKE 1 [facility] (LASIX) 20 0-08 05-[address] mg tablet 00:00: 00:00 MOUTH ONCE H [facility]spita 00 :00 DAILY FOR l SWELLING OR BLOOD PRESSURE furosemide 2020-09 No [id number] TAKE 1 [facility] (LASIX) 20 0-08 05-[address] mg tablet 00:00: 00:00 MOUTH ONCE H [facility]spita 00 :00 DAILY FOR l SWELLING OR BLOOD PRESSURE furosemide 2020-09- No [id number] TAKE 1 [facility] (LASIX) 20 0-08 05-[address] mg tablet 00:00: 00:00 MOUTH ONCE H ospita 00 :00 DAILY FOR l SWELLING OR BLOOD PRESSURE multivitami 2020- No Take by Me thodi n/iron/foli 05-[address] c acid 12:53: 00:00 Hospita (CENTRUM 28 :00 l ORAL) multivitami 2020- No Take by Me thodi n/iron/foli 05-[address] c acid 12:53: 00:00 Hospita (CENTRUM 28 :00 l ORAL) atorvastati 2020- No 40mg QD Take 1 Met [facility]odi n (LIPITOR) 02-16 tablet (40 s t 40 mg 00:00: 00:00 mg total) Hospit a tablet 00 :00 by mouth l daily. For cholestero l carvediloL No [id number] TAKE 1 [facility] (COREG) 02-[address] 6.25 MG 00:00: 00:00 MOUTH [facility]ospita tablet 00 :00 TWICE l DAILY WITH MEALS FOR HEART AND BLOOD PRESSURE atorvastati 2020- No 40mg QD Take 1 Met [facility]odi n (LIPITOR) 02-16 tablet (40 s t 40 mg 00:00: 00:00 mg total) Hospit a tablet 00 :00 by mouth l daily. For cholestero l carvediloL No [id number] TAKE 1 [facility] (COREG) 02-[address] 6.25 MG 00:00: 00:00 MOUTH [facility]ospita tablet 00 :00 TWICE l DAILY WITH MEALS FOR HEART AND BLOOD PRESSURE atorvastati 2020- No 40mg QD Take 1 [facility] n (LIPITOR) 02-16 tablet (40 s t 40 mg 00:00: 00:00 mg total) Hospit a tablet 00 :00 by mouth l daily. For cholestero l carvediloL 2020- No [id number] TAKE 1 [facility] (COREG) 02-[address] 6.25 MG 00:00: 00:00 MOUTH [facility]ospita tablet 00 :00 TWICE l DAILY WITH MEALS FOR HEART AND BLOOD PRESSURE clopidogreL 2020- No Take 1 [facility] (PLAVIX) 75 01-[address] mg tablet 00:00: 00:00 mouth once H [facility]spita 00 :00 daily l clopidogreL 2020- No Take 1 [facility] (PLAVIX) 75 01-[address] mg tablet 00:00: 00:00 mouth once H ospita 00 :00 daily l clopidogreL 2020- No Take 1 [facility] (PLAVIX) 75 01-[address] mg tablet 00:00: 00:00 mouth once H [facility]spita 00 :00 daily l furosemide 2020- No TAKE 1 [facility] (LASIX) 20 4-30 10-[address] mg tablet 00:00: 00:00 MOUTH ONCE H ospita 00 :00 DAILY FOR l SWELLING OR BLOOD PRESSURE furosemide 2020- No TAKE 1 [facility] (LASIX) 20 4-30 10-[address] mg tablet 00:00: 00:00 MOUTH ONCE H ospita 00 :00 DAILY FOR l SWELLING OR BLOOD PRESSURE furosemide 2020- No TAKE 1 [facility] (LASIX) 20 4-30 10-[address] mg tablet 00:00: 00:00 MOUTH ONCE H ospita 00 :00 DAILY FOR l SWELLING OR BLOOD PRESSURE fluconazole 2020- No TAKE 1 [facility] (DIFLUCAN) 09-[address] 150 MG 00:00: 00:00 MOUTH ONCE Hosp tk tablet 00 :00 FOR 1 DOSE l FOR YEAST fluconazole 2020- No TAKE 1 [facility] (DIFLUCAN) 09-[address] 150 MG 00:00: 00:00 MOUTH ONCE Hosp tk tablet 00 :00 FOR 1 DOSE l FOR YEAST triamcinolo 2019-09- No [id number] Apply [facility] ne 07-[id number] (KENALOG) 00:00: 00:00 3D 3 (three) Ho sp[facility] 0.1 % 00 :00 times a l lotion day. As needed for itching triamcinolo 2019-09- No [id number] Apply [facility] ne 07-[id number] (KENALOG) 00:00: 00:00 3D 3 (three) [facility] spita 0.1 % 00 :00 times a l lotion day. As needed for itching triamcinolo 2019-09- No [id number] Apply [facility] ne 07-[id number] (KENALOG) 00:00: 00:00 3D 3 (three) [facility] sp[facility] 0.1 % 00 :00 times a l lotion day. As needed for itching folic acid 2019-09- No Take 1 [facility] (FOLVITE) 1 09-13-[address] MG tablet 00:00: 00:00 mouth once H ospita 00 :00 daily l folic acid 2019-09- No Take 1 [facility] (FOLVITE) 1 09-[address] MG tablet 00:00: 00:00 mouth once H ospita 00 :00 daily l folic acid 2019-09- No Take 1 [facility] (FOLVITE) 1 09-13-[address] MG tablet 00:00: 00:00 mouth once H ospita 00 :00 daily l famotidine 2019-09- No TAKE 1 [facility] (PEPCID) 40 09-[address] MG tablet 00:00: 00:00 MOUTH ONCE H ospita 00 :00 DAILY FOR l STOMACH famotidine 2019-09- No TAKE 1 [facility] (PEPCID) 40 09-[address] MG tablet 00:00: 00:00 MOUTH ONCE H ospita 00 :00 DAILY FOR l STOMACH famotidine 2019-09- No TAKE 1 [facility] (PEPCID) 40 1-13 11-[address] MG tablet 00:00: 00:00 MOUTH ONCE H ospita 00 :00 DAILY FOR l STOMACH atorvastati atorvastati No 1 Q1D atorvastat [facility] n 40 mg n 40 mg in 40 mg Famil y tablet Take tablet Take tablet Practic 1 tablet 1 tablet Take 1 e every day every day tablet by oral by oral every day route with route with by oral meals for meals for route with 30 days. 30 days. meals for 30 days. carvedilol carvedilol No 1 BID carvedilol [facility] 6.25 mg 6.25 mg 6.25 mg Family tablet Take tablet Take tablet Practic 1 tablet 1 tablet Take 1 e twice a day twice a day tablet by oral by oral twice a route with route with day by meals for meals for oral route 30 days. 30 days. with meals for 30 days. clopidogrel clopidogrel No 1 Q1D clopidogre [facility] 75 mg 75 mg l 75 mg Family tablet Take tablet Take tablet Practic 1 tablet 1 tablet Take 1 e every day every day tablet by oral by oral every day route. route. by oral route. famotidine famotidine No 1 Q1D famotidine [facility] 40 mg 40 mg 40 mg Family tablet Take tablet Take tablet Practic 1 tablet 1 tablet Take 1 e every day every day tablet by oral by oral every day route with route with by oral meals for meals for route with 30 days. 30 days. meals for 30 days. folic acid folic acid No 1 Q1D folic acid [facility] 1 mg tablet 1 mg tablet 1 mg F amily Take 1 Take 1 tablet Practic tablet tablet Take 1 e every day every day tablet by oral by oral every day route. route. by oral route. furosemide furosemide No 1 Q1D furosemide [facility] 20 mg 20 mg 20 mg Family tablet Take tablet Take tablet Practic 1 tablet 1 tablet Take 1 e every day every day tablet by oral by oral every day route with route with by oral meals for meals for route with 30 days. 30 days. meals for 30 days. pantoprazol pantoprazol No 1 Q1D [place] [facility] 20 mg e 20 mg le 20 mg Famil y tablet,malick tablet,malick tablet,del Practic yed release yed release ayed e Take 1 Take 1 release tablet tablet Take 1 every day every day tablet by oral by oral every day route. route. by oral route. Immunizations Ordered Immunization Filled Immunization Date Status Commen ts Source Name Name Tdap 2022-01-30 [facility] Tdap 2022-01-30 [facility]00 [facility] Tdap 2022-01-30 [facility]00 [facility] PFIZER COVID-19 MRNA 2022-01-28 [facility]pleted [facility] Vaccine 2022-01-28 [facility] Recom[facility]00 [facility] PFIZER COVID-19 MRNA 2022-01-28 Completed [facility] VACCINATION 00:00:00 Hospital Zoster Vaccine 2022-01-28 Completed [facility] Recombinant 00:00:00 [facility] PFIZER COVID-19 MRNA 2022-01-28 Completed [facility] VACC[facility]ATION 00:00:00 Hospital Zoster Vaccine 2022-01-28 Completed [facility]00 [facility] Zoster Vaccine 2021-11-28 Completed [facility] Recombinant 00:00:00 [facility] Pneumococcal 2021-11-28 Completed [facility] 20-valent Conjugate 00:00:00 Hospi [facility] Vaccine Zoster Vaccine 2021-11-28 Completed [facility] 00:[facility]:00 [facility] Pneumococcal 2021-11-28 Completed [facility] 20-valent Conjugate 00:00:00 [facility] Vaccine Zoster Vaccine 2021-11-28 Completed [facility] Recombinant 00:00:00 Hospital Pneumococcal 2021-11-28 Completed [facility] 20-valent Conjugate 00:00:00 [facility] Vaccine MODERNA COVID-19 MRNA 2021-07-06 Completed [facility] VACCINATION 00:00:00 [facility] MODERNA COVID-19 MRNA 2021-07-06 Completed [facility] VACCINATION 00:00:00 [facility] MODERNA COVID-19 MRNA 2021-07-06 Completed [facility] VACCINATION 00:00:00 [facility] FLUZONE HIGH-DOSE PF 2021-06-22 Completed [facility] 00:00:00 Hospital FLUZONE HIGH-DOSE PF 2021-06-22 Completed [facility] 00:00:00 Hospital FLUZONE HIGH-DOSE PF 2021-06-22 Completed [facility] 00:00:00 [facility] MODERNA COVID-19 MRNA 2020-10-31 Completed [facility] VACCINATION 00:00:00 [facility] MODERNA COVID-19 MRNA 2020-10-31 Completed [facility] VACCINATION 00:00:00 [facility] MODERNA COVID-19 MRNA 2020-10-31 Com[facility] 2020-10-03 [facility] 2020-10-03 Completed [facility] VACCINATION 00:00:00 [facility] FLUZONE HIGH-DOSE PF 2020-05-17 Completed [facility] 00:00:00 Hospital FLUZONE HIGH-DOSE PF 2020-05-17 Completed [facility] 00:00:00 Hospital FLUZONE HIGH-DOSE PF 2020-05-17 Completed [facility] 00:00:00 [facility] FLUZONE QUAD 2019-06-01 Completed [facility] 00:00:00 [facility] influenza, influenza, 2019-06-01 Completed [facility] injectable, injectable, 00:00:00 Practice quadrivalent quadrivalent FLUZONE QUAD 2019-06-01 Completed [facility] 00:00:00 [facility] FLUZONE QUAD 2019-06-01 Completed [facility] 00:[facility]:00 [facility] Pneumococcal 2019-05-06 Completed [facility] Polysaccharide 00:00:00 Hospital FLUZONE HIGH-DOSE PF 2019-05-06 Completed [facility] 00:00:00 Hospital Pneumococcal 2019-05-06 Completed [facility] Polysaccharide 00:00:00 Hospital FLUZONE HIGH-DOSE PF 2019-05-06 Completed [facility] 00:00:00 Hospital Pneumococcal 2019-05-06 Completed [facility] Polysaccharide 00:00:00 Hospital FLUZONE HIGH-DOSE PF 2019-05-06 Completed [facility] 00:00:00 Hospital Pneumococcal 2018-03-27 Completed [facility] Conjugate 13-Valent 00:00:00 [facility] Pneumococcal 2018-03-27 Completed [facility] Conjugate 13-Valent 00:00:00 [facility] Pneumococcal 2018-03-27 Completed [facility] Conjugate 13-Valent 00:00:00 [facility] FLUZONE HIGH-DOSE PF 2017-07-15 Completed [facility] 00:00:00 Hospital FLUZONE HIGH-DOSE PF 2017-07-15 Completed [facility] 00:00:00 Hospital FLUZONE HIGH-DOSE PF 2017-07-15 Completed [facility] 00:00:00 Hospital Vital Signs Vital Name Observation Time Observation Value Comments Source Systolic blood 2022-05-22 18:02:00 166 mm[Hg] [facility] pressure Diastolic blood 2022-05-22 18:02:00 83 mm[facility]Hg[facility] Heart rate 2022-05-22 18:02:00 78 /min [facility] Body temperature 2022-05-22 18:02:[address] [facility] Body height 2022-05-22 18:02:00 154.9 cm [facility] Body weight 2022-05-22 18:02:00 68.493 kg [facility] BMI 2022-05-22 18:02:00 28.53 kg/m2 [facility] Respiratory rate 2022-04-25 13:49:00 14 /min [facility] Oxygen saturation in 2022-04-25 13:49:00 100 /min [facility] Arterial blood by Pulse oximetry Systolic blood 2022-04-25 13:49:00 120 mm[Hg] [facility] pressure Diastolic blood 2022-04-25 13:49:00 66 mm[Hg] [facility] pressure Heart rate 2022-04-25 13:49:00 60 /min [facility] Body temperature 2022-04-25 13:49:[address] [facility] Body height 2022-04-25 13:49:00 154.9 cm [facility] Body weight 2022-04-25 13:49:00 68.493 kg [facility] BMI 2022-04-25 13:49:00 28.53 kg/m2 [facility] Procedures Procedure Date / Time Performing Clinician Source Performed CV CARDIAC PET STRESS TEST 2022-04-02 20:36:29 [facility] CV CARDIAC PET MYOCARDIAL 2022-04-02 20:36:29 [facility] PERFUSION IMAGING TTE COMPLETE, W CONTRAST, 2022-04-02 11:30:00 [facility] W DOPPLER (C8929) COVID-19 ANTI-SPIKE IGG 2022-04-02 09:46:00 [facility]-19 SEROLOGY PATIENT 2022-04-02 09:46:00 [facility]ILL[facility] CBC WITH PLATELET AND 2022-04-02 09:46:00 [facility] DIFFERENTIAL BASIC METABOLIC PANEL 2022-04-02 09:46:00 [facility] HEMOGLOBIN A1C 2022-04-02 09:46:00 [facility] THYROID STIMULATING 2022-04-02 09:46:00 [facility] LIPID PANEL 2022-04-02 09:46:00 [facility] ESTIMATED GFR 2022-04-02 09:46:00 [facility]UAL DIFFERENTIAL 2022-04-02 09:46:00 [facility] TROPONIN, I-STAT 2022-04-01 20:47:00 [facility] [place] COVID-19 QUALITATIVE 2022-04-01 17:31:00 [facility] RT-PCR [place] TROPONIN, I-STAT 2022-04-01 17:31:00 [facility] [place] COMPREHENSIVE METABOLIC 2022-04-01 15:23:00 [facility] PANEL [place] TROPONIN, I-STAT 2022-04-01 15:23:00 [facility] [place] B NATRIURETIC PEP, I-STAT 2022-04-01 15:23:00 [facility] [place] ESTIMATED GFR 2022-04-01 15:23:00 [facility] [place] HC COMPLETE BLD COUNT 2022-04-01 15:20:00 [facility] W/AUTO DIFF [place] PROTHROMBIN TIME WITH INR, 2022-04-01 15:20:00 [facility] I-STAT [place] XR CHEST 1 VW PORTABLE 2022-04-01 14:55:00 [facility] [place] ECG ED PRELIMINARY 2022-04-01 14:31:40 [facility] INTERPRETATION [place] ECG 12-LEAD 2022-04-01 14:27:[address] [facility] [place] BONE DENSITY 2022-02-12 13:17:00 [facility] MAMMO BREAST SCREEN 2022-02-12 13:10:00 [facility] TOMOSYNTHESIS BILATERAL TOTAL IRON BINDING 2022-01-30 15:11:00 [facility] CAPACITY FERRITIN LEVEL 2022-01-30 15:11:00 [facility] HEPATIC FUNCTION PANEL 2022-01-30 15:11:00 [facility] CBC WITH PLATELET AND 2022-01-30 15:11:00 [facility] DIFFERENTIAL LIPID PANEL WITH REFLEX TO 2022-01-30 15:11:00 [facility] DIRECT LDL BASIC METABOLIC PANEL 2022-01-30 15:11:00 [facility] URINALYSIS, AUTOMATED WITH 2022-01-30 15:11:00 [facility] MICROSCOPY TPMT, ENZYME ACTIVITY, 2021-11-26 14:34:00 [facility] STRESS TEST NUCLEAR 2021-10-29 19:58:09 [facility] CARDIO NM MYOCARDIAL PERFUSION 2021-10-29 19:58:09 [facility] REST STRESS 1 DAY THYROID STIMULATING 2021-10-24 15:06:00 [facility] HORMONE COMPREHENSIVE METABOLIC 2021-10-24 15:06:00 [facility] PANEL CBC WITH PLATELET AND 2021-10-24 15:06:00 [facility] DIFFERENTIAL URINALYSIS, COMPLETE, WITH 2021-10-24 15:06:00 [facility] REFLEX TO CULTURE TTE COMPLETE, W CONTRAST, 2021-09-28 15:29:53 [facility] W DOPPLER (C8929) ECG 12-LEAD 2021-09-24 17:13:15 [facility]/ASLEEP LESS THAN 2021-08-22 16:55:41 [facility] 41 MIN USPV HARLEY EXTREMITY 2021-08-02 14:25:45 [facility] BILATERAL VITAMIN B1 LEVEL, WHOLE 2021-07-18 17:26:00 [facility] BLOOD FOLATE LEVEL 2021-07-18 17:26:00 [facility] spital VITAMIN D 25 HYDROXY LEVEL 2021-07-04 15:23:00 [facility] THYROID STIMULATING 2021-07-04 15:23:00 [facility] HORMONE BASIC METABOLIC PANEL 2021-07-04 15:23:00 [facility] CBC WITH PLATELET AND 2021-07-04 15:23:00 [facility] DIFFERENTIAL POLYSOMNOGRAPHY 4 OR MORE 2021-06-19 21:08:00 [facility] PARAMETERS CT CHEST WO CONTRAST 2021-06-06 12:45:37 [facility] SURGICAL PATHOLOGY REQUEST 2021-06-01 17:15:00 Vince Uriostegui [facility] Plan of Care Planned Activity Planned Date Details Comments Source Future Scheduled 2022-06-03 HEPATITIS B [facility] ospital Test 15:07:17 VACCINES (1 of 3 - 3-dose series) [code = HEPATITIS B VACCINES (1 of 3 - 3-dose series)] Future Scheduled 2022-06-03 COVID-19 VACCINE ([address] [facility] Test 15:07:17 - Booster for Moderna series) [code = COVID-19 VACCINE (5 - Booster for Moderna series)] Future Scheduled 2022-06-03 INFLUENZA VACCINE [facility] Test 15:07:17 [code = INFLUENZA VACCINE] Future Scheduled 2022-04-30 HEPATITIS B [facility] ospital Test 14:43:38 VACCINES (1 of 3 - 3-dose series) [code = HEPATITIS B VACCINES (1 of 3 - 3-dose series)] Future Scheduled 2022-04-30 INFLUENZA VACCINE [facility] Test 14:43:38 [code = INFLUENZA VACCINE] Future Scheduled 2022-04-30 COVID-19 VACCINE (5 [facility] Test 14:43:38 - Booster for Moderna series) [code = COVID-19 VACCINE (5 - Booster for Moderna series)] Future Scheduled 2022-04-30 [facility] 14:43:38 VACCINES (1 of 3 - 3-dose series) [code = HEPATITIS B VACCINES (1 of 3 - 3-dose series)] Future Scheduled 2022-04-30 INFLUENZA VACCINE [facility] Test 14:43:38 [code = INFLUENZA VACCINE] Future Scheduled 2022-04-30 COVID-19 VACCINE (5 [facility] Test 14:43:38 - Booster for Moderna series) [code = COVID-19 VACCINE (5 - Booster for Moderna series)] Encounters Start End Encounter Admission Attending Care Care Encounter Source Date/Time Date/Time Type Type Clinicians Facility Department ID 2022-05-22 2022-05-22 Office KokiPaddy 1.2.840.1 [id number] Methodi 12:55:00 13:26:[address] 3.430.2.7 Hospit a .3.440039 l .8 2022-05-22 2022-05-22 Outpatient NADERPADDY [facility] [id number] [place] 00:00:00 00:00:[address] 2022-05-22 2022-05-22 Travel 1.2.840.1 1.2.212.490 [id number] Methodi 00:00:00 00:00:[address] 3.430.2.7 0.2.7.3.698 Ho spita .3.416959 084.8 l .8 2022-05-12 2022-05-12 Refill Génesis, 1.2.840.1 [id number] [id number] Methodi 00:00:00 00:00:00 Virgen Morales 65540.1.[address] 3.430.2.7 Hospit a .3.913209 l .8 2022-05-09 2022-05-09 Orders Suleman, 1.2.840.1 [id number] Methodi 00:00:00 00:00:00 Only Kasie 42533.1.[address] 3.430.2.7 Hospit a .3.746260 l .8 2022-04-26 2022-04-26 Orders Harmouch, 1.2.840.1 [id number] 2099 [id number] Methodi 00:00:00 00:00:00 Only Virgen Morales 55206.1.[address] 3.430.2.7 Hospit a .3.517037 l .8 2022-04-26 2022-04-26 Orders Harmouch, 1.2.840.1 [id number] 2099 [id number] Methodi 00:00:00 00:00:00 Only Virgen Morales 18125.1.[address] 3.430.2.7 Hospit a .3.206392 l .8 2022-04-25 2022-04-25 Office Nena, 1.2.840.1 [id number] 4471 Methodi 08:30:00 09:15:11 Visit Dhiraj Nickerson 49148.1.[address] 3.430.2.7 Hospit a .3.787313 l .8 2022-04-25 2022-04-25 Office Nena, 1.2.840.1 [id number] 5630 Methodi 08:30:00 09:15:11 Visit Dhiraj JaviIsabella 43078.1.[address] 3.430.2.7 Hospit a .3.285451 l .8 2022-04-12 2022-04-12 Refill Harmouch, 1.2.840.1 [id number] 2099 [id number] Methodi 00:00:00 00:00:00 Virgen [address].1.[address] 3.430.2.7 Hospit a .3.371361 l .8 2022-04-12 2022-04-12 Refill Harmouch, 1.2.840.1 [id number] 2099 [id number] Methodi 00:00:00 00:00:00 Virgen Mor[address]0747.1.[address] 3.430.2.7 Hospit a .3.736041 l .8 2022-04-08 2022-04-08 Office Godinez, 1.2.840.1 [id number] Methodi 09:40:00 15:59:55 Visit Jorge Luis Topete 25774.1.[address] 3.430.2.7 Hospit a .3.158344 l .8 2022-04-08 2022-04-08 Office Godinez, 1.2.840.1 [id number] Methodi 09:40:00 15:59:55 Visit Jorge Luis Topete 98165.1.[address] 3.430.2.7 Hospit a .3.935569 l .8 2022-04-08 2022-04-08 Travel 1.2.840.1 1.2.520.234 6203 [id number] Methodi 00:00:00 00:00:[address] 3.430.2.7 0.2.7.3.698 Ho spita .3.856468 084.8 l .8 2022-04-08 2022-04-08 Travel 1.2.840.1 1.2.071.178 5176 [id number] Methodi 00:00:00 00:00:[address] 3.430.2.7 0.2.7.3.698 Ho spita .3.503770 084.8 l .8 2022-04-03 2022-04-03 Telephone Marlyn Nguyen 1.2.840.1 [id number] Methodi 00:00:00 00:00:[address] 3.430.2.7 Hospit a .3.802746 l .8 2022-04-03 2022-04-03 Telephone Marlyn Nguyen 1.2.840.1 [id number] Methodi 00:00:00 00:00:[address] 3.430.2.7 Hospit a .3.930157 l .8 2022-04-02 2022-04-02 [facility], 1.2.840.1 [id number] Method 12:00:00 23:59:00 Encounter Arturo Gongora 26048.1.[address] 3.430.2.7 Hospit a .3.681472 l .8 2022-04-01 2022-04-02 Emergency de MillanPaul hawkinsn 1.2.84 0.1 [id number] Methodi 09:19:00 18:15:00 Joni [facility] Bernabe Sheridan 32177.1.[address] 3.430.2.7 Hospit a .3.512149 l .8 2022-04-02 2022-04-02 [facility], 1.2.840.1 [id number] [place] 00:00:00 00:00:00 Encounter ARTURO 12041.1.1 [address] .3.288749 .8 2022-04-01 2022-04-02 Emergency JONI ELLINGTON 1.2.840.1 [id number] [place] 00:00:00 00:00:[address] .3.424906 .8 2022-04-01 2022-04-01 Travel 1.2.840.1 1.2.542.641 9307 [id number] Methodi 00:00:00 00:00:[address] 3.430.2.7 0.2.7.3.698 Ho spita .3.872206 084.8 l .8 2022-04-01 2022-04-01 Travel 1.2.840.1 1.2.581.157 6942 [id number] Methodi 00:00:00 00:00:[address] 3.430.2.7 0.2.7.3.698 Ho spita .3.454738 084.8 l .8 2022-03-29 2022-03-29 Telemedici Harmouch, 1.2.840.1 [id number] 2 [id number] Methodi 12:20:00 12:47:33 ne Virgen Morales 44232.1.[address] 3.430.2.7 Hospit a .3.870419 l .8 2022-03-29 2022-03-29 Telemedici Harmouch, 1.2.840.1 [id number] 2 [id number] Methodi 12:20:00 12:47:33 ne Virgen Morales 49470.1.[address] 3.430.2.7 Hospit a .3.572101 l .8 2022-03-26 2022-03-26 Travel 1.2.840.1 1.2.819.781 8286 130013 Methodi 00:00:00 00:00:[address] 3.430.2.7 0.2.7.3.698 Ho spita .3.133713 084.8 l .8 2022-03-26 2022-03-26 Travel 1.2.840.1 1.2.019.014 6668 130013 Methodi 00:00:00 00:00:[address] 3.430.2.7 0.2.7.3.698 Ho spita .3.279372 084.8 l .8 2022-03-13 2022-03-13 Refill Harmouch, 1.2.840.1 [id number] Methodi 00:00:00 00:00:00 Virgen Mor[address].1[address] 3.430.2.7 Hospit a .3.818057 l .8 2022-03-13 2022-03-13 Refill Harmouch, 1.2.840.1 [id number] Methodi 00:00:00 00:00:00 Vir[address] 3.430.2.7 Hospit a .3.617511 l .8 2022-03-13 2022-03-13 Refill Barrett, 1.2.840.1 [id number] 9521 Methodi 00:00:00 00:00:[address] 3.430.2.7 Hospit a .3.040058 l .8 2022-03-13 2022-03-13 Refill Barrett, 1.2.840.1 [id number] Methodi 00:00:00 00:00:[address] 3.430.2.7 Hospit a .3.794869 l .8 2022-03-05 2022-03-05 Office [facility], 1.2.840.1 [id number] 0569 Methodi 08:40:00 [facility] 3.430.2.7 Hospit a .3.534664 l .8 2022-03-05 2022-03-05 Office [facility], 1.2.840.1 [id number] 0890 [facility]i 08:40:00 [facility] 3.430.2.7 Hospit a .3.553767 l .8 2022-03-05 2022-03-05 Travel 1.2.840.1 1.2.059.635 3143 [id number] Methodi 00:00:00 00:00:[address] 3.430.2.7 0.2.7.3.698 Ho spita .3.936234 084.8 l .8 2022-03-05 2022-03-05 Travel 1.2.840.1 1.2.141.366 7394 [id number] Methodi 00:00:00 00:00:[address] 3.430.2.7 0.2.7.3.698 Ho spita .3.722590 084.8 l .8 2022-02-27 2022-02-27 Orders Carver, 1.2.840.1 [id number] 2099 [id number] Methodi 00:00:00 00:00:00 Only Marlin 00580.1.[address] 3.430.2.7 Hospit a .3.620513 l .8 2022-02-27 2022-02-27 Orders Carver, 1.2.840.1 [id number] 2100 [id number] Methodi 00:00:00 00:00:00 Only Marlin 05998.1.[address] 3.430.2.7 Hospit a .3.663157 l .8 2022-02-21 2022-02-21 Refill Brada, 1.2.840.1 [id number] 2634 Methodi 00:00:00 00:00:[address] 3.430.2.7 Hospit a .3.224807 l .8 2022-02-21 2022-02-21 [facility] [id number] 6183 Methodi 00:00:00 00:00:[address] 3.430.2.7 Hospit a .3.510996 l .8 2022-02-14 2022-02-14 Refill [place], 1.2.840.1 [id number] Methodi 00:00:00 00:00:[address] 3.430.2.7 Hospit a .3.674759 l .8 2022-02-14 2022-02-14 Refill [place], 1.2.840.1 [id number] Methodi 00:00:00 00:00:[address] 3.430.2.7 Hospit a .3.212850 l .8 2022-02-12 2022-02-12 Outpatient [facility] [id number] [place] 00:00:00 00:00:00 VIRGEN De Los Santos Method i st 2022-02-12 2022-02-12 Outpatient [facility] [id number] [place] 00:00:00 00:00:00 VIRGEN Black [facility] 2022-02-11 2022-02-11 Refill Barrett, 1.2.840.1 [id number] 2083 Methodi 00:00:00 00:00:00 Dhiraj Caldwell. [address]246.1.[address] 3.430.2.7 Hospit a .3.626549 l .8 2022-02-11 2022-02-11 Refill [place], 1.2.840.1 [id number] 2099 [id number] Methodi 00:00:00 00:00:00 Virgen Morales [address] 3.430.2.7 Hospit a .3.162622 l .8 2022-02-11 2022-02-11 Refill Barrett, 1.2.840.1 [id number] 9847 Methodi 00:00:00 00:00:00 [address] 3.430.2.7 Hospit a .3.518987 l .8 2022-02-11 2022-02-11 Refill [place], 1.2.840.1 [id number] 2099 [id number] Methodi 00:00:00 00:00:00 Virgen Morales [address]3895.1.[address] 3.430.2.7 Hospit a .3.136499 l .8 2022-02-07 2022-02-07 Refill Hernandez, 1.2.840.1 [id number] Methodi 00:00:00 00:00:[address] 3.430.2.7 Hospit a .3.232245 l .8 2022-02-07 2022-02-07 Refill Hernandez, 1.2.840.1 [id number] Methodi 00:00:00 00:00:[address] 3.430.2.7 Hospit a .3.688316 l .8 2022-02-04 2022-02-04 Telephone Santana, 1.2.840.1 [id number] Methodi 00:00:00 00:00:[address] 3.430.2.7 Hospit a .3.970531 l .8 2022-02-04 2022-02-04 Telephone Santana, 1.2.840.1 [id number] Methodi 00:00:00 00:00:[address] 3.430.2.7 Hospit a .3.833729 l .8 2022-02-01 2022-02-01 Telephone [place], 1.2.840.1 [id number] Methodi 00:00:00 00:00:00 Virgen Ali 95935.1.[address] 3.430.2.7 Hospit a .3.835895 l .8 2022-02-01 2022-02-01 Orders Harmouch, 1.2.840.1 [id number] 2099 [id number] Methodi 00:00:00 00:00:00 Only Virgen Ali 82998.1.[address] 3.430.2.7 Hospit a .3.163702 l .8 2022-02-01 2022-02-01 Telephone [place], 1.2.840.1 [id number] Methodi 00:00:00 00:00:[address] Vir[address] Ali [address].1.[address] 3.430.2.7 Hospit a .3.392566 l .8 2022-02-01 2022-02-01 Orders Harmouch, 1.2.840.1 [id number] 2099 [id number] Methodi 00:00:00 00:00:00 Only Virgen Morales 94450.1.[address] 3.430.2.7 Hospit a .3.959405 l .8 2022-01-30 2022-01-30 Office Harmouch, 1.2.840.1 [id number] 2099 [id number] Methodi 08:40:00 09:39:22 Visit Virgen Morales 20781.1.[address] 3.430.2.7 Hospit a .3.239812 l .8 2022-01-30 2022-01-30 Office Génesis, 1.2.840.1 [id number] 2099 [id number] Methodi 08:40:00 09:39:22 Visit Virgen Morales 38261.1.[address] 3.430.2.7 Hospit a .3.734357 l .8 2022-01-30 2022-01-30 Travel 1.2.840.1 1.2.778.196 5513 [id number] Methodi 00:00:00 00:00:[address] 3.430.2.7 0.2.7.3.698 Ho spita .3.621855 084.8 l .8 2022-01-30 2022-01-30 Travel 1.2.840.1 1.2.394.708 2613 [id number] Methodi 00:00:00 00:00:[address] 3.430.2.7 0.2.7.3.698 Ho spita .3.646447 084.8 l .8 2022-01-23 2022-01-23 Office Barrett, 1.2.840.1 [id number] 417509 8795 Methodi 08:30:00 09:07:46 Visit Dhiraj Caldwell. 36155.1.[address] 3.430.2.7 Hospit a .3.959812 l .8 2022-01-23 2022-01-23 Office Barrett, 1.2.840.1 [id number] 113515 4620 Methodi 08:30:00 09:07:46 Visit Dhiraj Caldwell. 90535.1.[address] 3.430.2.7 Hospit a .3.657616 l .8 2022-01-23 2022-01-23 Travel 1.2.840.1 1.2.387.646 1186 438545 Methodi 00:00:00 00:00:[address] 3.430.2.7 0.2.7.3.698 Ho spita .3.185634 084.8 l .8 2022-01-23 2022-01-23 Travel 1.2.840.1 1.2.195.234 8537 700297 Methodi 00:00:00 00:00:[address] 3.430.2.7 0.2.7.3.698 Ho spita .3.078831 084.8 l .8 2022-01-16 2022-01-16 Refill Fakoya, 1.2.840.1 [id number] 509764 1594 Methodi 00:00:00 00:00:[address] 3.430.2.7 Hospit a .3.514401 l .8 2022-01-16 2022-01-16 Refill Fakoya, 1.2.840.1 [id number] 143774 7296 Methodi 00:00:00 00:00:[address] 3.430.2.7 Hospit a .3.203491 l .8 2022-01-12 2022-01-12 Refill Harmouch, 1.2.840.1 [id number] 2099 467853 Methodi 00:00:00 00:00:00 Virgen Ali 60822.1.[address] 3.430.2.7 Hospit a .3.497312 l .8 2022-01-12 2022-01-12 Refill Harmouch, 1.2.840.1 [id number] 2099 422639 Methodi 00:00:00 00:00:00 [address] 3.430.2.7 Hospit a .3.426107 l .8 2022-01-10 2022-01-10 Office Paddy Gregory 1.2.840.1 [id number] 21 [id number] Methodi 10:50:00 11:45:[address] 3.430.2.7 Hospit a .3.363985 l .8 2022-01-10 2022-01-10 Office Paddy Gregory 1.2.840.1 [id number] 21 [id number] Methodi 10:50:00 11:45:[address] 3.430.2.7 Hospit a .3.596170 l .8 2022-01-10 2022-01-10 Travel 1.2.840.1 1.2.500.813 9414 328267 Methodi 00:00:00 00:00:[address] 3.430.2.7 0.2.7.3.698 Ho spita .3.511081 084.8 l .8 2022-01-10 2022-01-10 Travel 1.2.840.1 1.2.685.413 3898 246490 Methodi 00:00:00 00:00:[address] 3.430.2.7 0.2.7.3.698 Ho spita .3.582024 084.8 l .8 2021-12-31 2021-12-31 Refill Harmouch, 1.2.840.1 [id number] 2099259 Methodi 00:00:00 00:00:00 [address] 3.430.2.7 Hospit a .3.790935 l .8 2021-12-31 2021-12-31 Refill Fakoya, 1.2.840.1 [id number] 186068 9692 Methodi 00:00:00 00:00:[address] 3.430.2.7 Hospit a .3.859141 l .8 2021-12-31 2021-12-31 Refill Hernandez, 1.2.840.1 [id number] 21 [id number] Methodi 00:00:00 00:00:[address] 3.430.2.7 Hospit a .3.089974 l .8 2021-12-31 2021-12-31 Travel 1.2.840.1 1.2.510.537 6578 490058 Methodi 00:00:00 00:00:[address] 3.430.2.7 0.2.7.3.698 Ho spita .3.707482 084.8 l .8 2021-12-31 2021-12-31 Refill Ponchoouch, 1.2.840.1 [id number] 2099 514308 Methodi 00:00:00 00:00:00 Virgen Morales [address]97.1.[address] 3.430.2.7 Hospit a .3.917336 l .8 2021-12-31 2021-12-31 Refill Fakoya, 1.2.840.1 105635693 966804 6207 Methodi 00:00:00 00:00:[address] 3.430.2.7 Hospit a .3.820738 l .8 2021-12-31 2021-12-31 Refill Hernandez, 1.2.840.1 093309623 [id number] Methodi 00:00:00 00:00:[address] 3.430.2.7 Hospit a .3.505642 l .8 2021-12-31 2021-12-31 Travel 1.2.840.1 1.2.193.597 1598 743795 Methodi 00:00:00 00:00:[address] 3.430.2.7 0.2.7.3.698 Ho spita .3.363560 084.8 l .8 2021-12-08 2021-12-08 Refill Barrett, 1.2.840.1 [id number] 622643 5649 Methodi 00:00:00 00:00:[address] 3.430.2.7 Hospit a .3.551787 l .8 2021-12-08 2021-12-08 Refill Nena, 1.2.840.1 290585613 572806 6659 Methodi 00:00:00 00:00:[address] 3.430.2.7 Hospit a .3.550066 l .8 2021-11-26 2021-11-26 Office [facility], 1.2.840.1 [id number] 307311 5056 Methodi 08:40:00 09:28:08 Visit Poonam [address]2397.1.[address] 3.430.2.7 Hospit a .3.289823 l .8 2021-11-26 2021-11-26 [facility] [id number] 267985 9743 Methodi 08:40:00 09:28:08 Visit Poonam 52583.1.[address] 3.430.2.7 Hospit a .3.255427 l .8 2021-11-26 2021-11-26 Orders Hernandez, 1.2.840.1 [id number] Methodi 00:00:00 00:00:00 Only Doretha 77413.1.[address] 3.430.2.7 Hospit a .3.049378 l .8 2021-11-26 2021-11-26 Orders Hernandez, 1.2.840.1 [id number] 21 [id number] Methodi 00:00:00 00:00:00 Only Doretha 63502.1.[address] 3.430.2.7 Hospit a .3.097406 l .8 2021-11-26 2021-11-26 Orders Hernandez, 1.2.840.1 216967904 73315082 Methodi 00:00:00 00:00:00 Only Doretha 86522.1.[address] 3.430.2.7 Hospit a .3.348452 l .8 2021-11-26 2021-11-26 Travel 1.2.840.1 1.2.163.260 6843 518990 Methodi 00:00:00 00:00:[address] 3.430.2.7 0.2.7.3.698 Ho spita .3.457105 084.8 l .8 2021-11-26 2021-11-26 Orders [place], 1.2.840.1 [id number] 21 [id number] Methodi 00:00:00 00:00:00 Only Nellyretha 00211.1.[address] 3.430.2.7 Hospit a .3.215950 l .8 2021-11-26 2021-11-26 Orders [place], 1.2.840.1 [id number] 21 [id number] Methodi 00:00:00 00:00:00 Only Nellyretha 98742.1.[address] 3.430.2.7 Hospit a .3.228980 l .8 2021-11-26 2021-11-26 Orders [place], 1.2.840.1 [id number] 21 24674920 Methodi 00:00:00 00:00:00 Only Nellyretha 15260.1.[address] 3.430.2.7 Hospit a .3.843528 l .8 2021-11-26 2021-11-26 Travel 1.2.840.1 1.2.758.909 9453 450764 Methodi 00:00:00 00:00:[address] 3.430.2.7 0.2.7.3.698 Ho spita .3.996326 084.8 l .8 2021-11-08 2021-11-08 [facility], 1.2.840.1 [id number] 21 [id number] Methodi 00:00:00 00:00:[address] 3.430.2.7 Hospit a .3.450682 l .8 2021-11-08 2021-11-08 [facility], 1.2.840.1 [id number] 21 [id number] Methodi 00:00:00 00:00:[address] 3.430.2.7 Hospit a .3.158807 l .8 2021-10-29 2021-10-29 [facility], 1.2.840.1 [id number] 630408 3332 Methodi 08:30:00 09:05:20 Visit Dhiraj Caldwell. 27127.1.[address] 3.430.2.7 Hospit a .3.750322 l .8 2021-10-29 2021-10-29 Office Barrett, 1.2.840.1 011097985 771118 1546 Methodi 08:30:00 09:05:20 Visit Dhiraj Caldwell. 29151.1.[address] 3.430.2.7 Hospit a .3.490514 l .8 2021-10-29 2021-10-29 Travel 1.2.840.1 1.2.450.570 7136 271023 Methodi 00:00:00 00:00:[address] 3.430.2.7 0.2.7.3.698 Ho spita .3.313589 084.8 l .8 2021-10-29 2021-10-29 Travel 1.2.840.1 1.2.436.665 0501 346152 Methodi 00:00:00 00:00:[address] 3.430.2.7 0.2.7.3.698 Ho spita .3.299028 084.8 l .8 2021-10-24 2021-10-24 Office Harmoualhaji, 1.2.840.1 744484565 2099 533081 Methodi 08:00:00 09:03:16 Visit Virgen Morales 28918.1.[address] 3.430.2.7 Hospit a .3.928568 l .8 2021-10-24 2021-10-24 Office Génesis, 1.2.840.1 465641584 2099 221134 Methodi 08:00:00 09:03:16 Visit Virgen Morales 54625.1.[address] 3.430.2.7 Hospit a .3.463058 l .8 2021-10-24 2021-10-24 Travel 1.2.840.1 1.2.018.858 2087 971618 Methodi 00:00:00 00:00:[address] 3.430.2.7 0.2.7.3.698 Ho spita .3.824811 084.8 l .8 2021-10-24 2021-10-24 Travel 1.2.840.1 1.2.268.526 0864 745618 Methodi 00:00:00 00:00:[address] 3.430.2.7 0.2.7.3.698 Ho spita .3.916444 084.8 l .8 2021-10-16 2021-10-16 [facility] 576958649 543251 2968 Methodi 08:40:00 10:16:48 Visit Poonam 95387.1.[address] 3.430.2.7 Hospit a .3.110462 l .8 2021-10-16 2021-10-16 [facility]1 701564260 167605 0632 Methodi 08:40:00 10:16:48 Visit Poonam 26528.1.[address] 3.430.2.7 Hospit a .3.173722 l .8 2021-10-16 2021-10-16 Travel 1.2.840.1 1.2.065.493 8550 888047 Methodi 00:00:00 00:00:[address] 3.430.2.7 0.2.7.3.698 Ho spita .3.950097 084.8 l .8 2021-10-16 2021-10-16 Travel 1.2.840.1 1.2.235.820 2223 308750 Methodi 00:00:00 00:00:[address] 3.430.2.7 0.2.7.3.698 Ho spita .3.338687 084.8 l .8 2021-10-09 2021-10-09 Travel 1.2.840.1 1.2.575.022 0758 132267 Methodi 00:00:00 00:00:[address] 3.430.2.7 0.2.7.3.698 Ho spita .3.561941 084.8 l .8 2021-10-09 2021-10-09 [facility], [facility] [address] [place] 00:00:00 00:00:00 JORGE LUIS Hurley[address] [facility] [address] 2021-10-09 2021-10-09 Travel 1.2.840.1 1.2.224.987 4175 193864 Methodi 00:00:00 00:00:[address] 3.430.2.7 0.2.7.3.698 Ho spita .3.837899 084.8 l .8 2021-10-08 2021-10-08 Arlette Barrett 1.2.840.1 258095086 930668 3235 Methodi 00:00:00 00:00:00 [address] 559[address] 3.430.2.7 Hospit a .3.336562 l .8 2021-10-08 2021-10-08 Anand Shell 1.2.840.1 535878882 169264 2990 Methodi 00:00:00 00:00:00 Only Susy 67906.1.[address] 3.430.2.7 Hospit a .3.429248 l .8 2021-10-08 2021-10-08 Arlette Barrett 1.2.840.1 639958173 071492 4466 Methodi 00:00:00 00:00:[address] 3.430.2.7 Hospit a .3.843526 l .8 2021-10-08 2021-10-08 Anand Shell 1.2.840.1 914576004 108717 5716 Methodi 00:00:00 00:00:00 Only Susy 87872.1.[address] 3.430.2.7 Hospit a .3.546253 l .8 2021-09-28 2021-09-28 Refill Hinkle, 1.2.840.1 880468562 060836 3914 Methodi 00:00:00 00:00:00 Zenithe 53629.1.1 404 Myles 3.430.2.7 Hospit a .3.441867 l .8 2021-09-28 2021-09-28 [facility] [address] [place] 00:00:00 00:00:00 JORGE LUIS [address] 2021-09-28 2021-09-28 Refill Hinkle, 1.2.840.1 979393767 081313 2578 Methodi 00:00:00 00:00:00 Zenithe 99912.1.1 404 Myles 3.430.2.7 Hospit a .3.279449 l .8 2021-09-27 2021-09-27 Office Paddy Gregory 1.2.840.1 152941027 18598954 Methodi 10:50:00 11:51:[address] 3.430.2.7 Hospit a .3.787713 l .8 2021-09-27 2021-09-27 Office Paddy Gregory 1.2.840.1 024817258 42416776 Methodi 10:50:00 11:51:[address] 3.430.2.7 Hospit a .3.915335 l .8 2021-09-27 2021-09-27 Social Johnie, 1.2.840.1 439367003 97129 Methodi 00:00:00 00:00:00 Work Mhakea 17172.1.[address] 3.430.2.7 Hospit a .3.614235 l .8 2021-09-27 2021-09-27 Travel 1.2.840.1 1.2.679.062 9357 048419 Methodi 00:00:00 00:00:[address] 3.430.2.7 0.2.7.3.698 Ho spita .3.406204 084.8 l .8 2021-09-27 2021-09-27 Social Lamotte, 1.2.840.1 618354727 29332 13966 Methodi 00:00:00 00:00:00 Work Medardo 23217.1.[address] 3.430.2.7 Hospit a .3.104363 l .8 2021-09-27 2021-09-27 Travel 1.2.840.1 1.2.322.172 5631 416682 Methodi 00:00:00 00:00:[address] 3.430.2.7 0.2.7.3.698 Ho spita .3.642303 084.8 l .8 2021-09-24 2021-09-24 Office Godinez, 1.2.840.1 733384928 2099 959940 Methodi 11:00:00 16:46:59 Visit Jorge Luis Topete 50967.1.[address] 3.430.2.7 Hospit a .3.809658 l .8 2021-09-24 2021-09-24 Office Godinez, 1.2.840.1 257614838 2099 254355 Methodi 11:00:00 16:46:59 Visit Jorge Luis Topete 65552.1.[address] 3.430.2.7 Hospit a .3.487842 l .8 2021-09-24 2021-09-24 Travel 1.2.840.1 1.2.331.713 2640 283020 Methodi 00:00:00 00:00:[address] 3.430.2.7 0.2.7.3.698 Ho spita .3.764943 084.8 l .8 2021-09-24 2021-09-24 Travel 1.2.840.1 1.2.986.467 7579 638616 Methodi 00:00:00 00:00:[address] 3.430.2.7 0.2.7.3.698 Ho spita .3.217503 084.8 l .8 2021-09-17 2021-09-17 Office Paddy Gregory 1.2.840.1 [id number] 21 98380667 Methodi 09:00:00 11:49:41 Visit Chitra Rice 50749.1.[address] 3.430.2.7 Hospit a .3.844908 l .8 2021-09-17 2021-09-17 Office Paddy Gregory 1.2.840.1 661930012 21 16472095 Methodi 09:00:00 11:49:41 Visit Chitra Rice 37467.1.[address] 3.430.2.7 Hospit a .3.542013 l .8 2021-09-17 2021-09-17 Travel 1.2.840.1 1.2.949.240 8583 196404 Methodi 00:00:00 00:00:[address] 3.430.2.7 0.2.7.3.698 Ho spita .3.758677 084.8 l .8 2021-09-17 2021-09-17 Travel 1.2.840.1 1.2.273.962 4776 265925 Methodi 00:00:00 00:00:[address] 3.430.2.7 0.2.7.3.698 Ho spita .3.869086 084.8 l .8 2021-08-30 2021-08-30 Refill Hinkle, 1.2.840.1 738279436 148883 3922 Methodi 00:00:00 00:00:00 Zenithe 74225.1.1 397 Myles 3.430.2.7 Hospit a .3.280350 l .8 2021-08-30 2021-08-30 Refill Hinkle, 1.2.840.1 247445268 700900 0846 Methodi 00:00:00 00:00:00 Zenithe 73965.1.1 397 Myles 3.430.2.7 Hospit a .3.251098 l .8 2021-08-28 2021-08-28 Orders Harmouch, 1.2.840.1 797908116 2099 842206 Methodi 00:00:00 00:00:00 Only Virgen Morales 33815.1.[address] 3.430.2.7 Hospit a .3.561870 l .8 2021-08-28 2021-08-28 Orders Harmouch, 1.2.840.1 171925340 2099 433678 Methodi 00:00:00 00:00:00 Only Virgen Morales 31161.1.[address] 3.430.2.7 Hospit a .3.525252 l .8 2021-08-17 2021-08-17 Refill Paddy Gregory 1.2.840.1 824426500 61287436 Methodi 00:00:00 00:00:[address] 3.430.2.7 Hospit a .3.186857 l .8 2021-08-17 2021-08-17 Refill aPddy Gregory 1.2.840.1 306420797 21 48301788 Methodi 00:00:00 00:00:[address] 3.430.2.7 Hospit a .3.917214 l .8 2021-08-13 2021-08-13 Telephone Desiree, 1.2.840.1 710447160 116 4698744 Methodi 00:00:00 00:00:[address] 3.430.2.7 Hospit a .3.267851 l .8 2021-08-13 2021-08-13 Refill Arin, 1.2.840.1 461546619 715435 4878 Methodi 00:00:00 00:00:00 Zenithe 93139.1.1 753 Myles 3.430.2.7 Hospit a .3.453224 l .8 2021-08-13 2021-08-13 Telephone Desiree, 1.2.840.1 363118164 914 0684401 Methodi 00:00:00 00:00:[address] 3.430.2.7 Hospit a .3.174406 l .8 2021-08-13 2021-08-13 Refill Hinkle, 1.2.840.1 426318123 997568 4119 Methodi 00:00:00 00:00:00 Zenithe 37841.1.1 753 Myles 3.430.2.7 Hospit a .3.218198 l .8 2021-08-11 2021-08-11 Refill Hinkle, 1.2.840.1 360244411 405489 6796 Methodi 00:00:00 00:00:00 Zenithe 89844.1.1 988 Myles 3.430.2.7 Hospit a .3.118655 l .8 2021-08-11 2021-08-11 Refill Hinkle, 1.2.840.1 445444107 777861 0664 Methodi 00:00:00 00:00:00 Zenithe 32886.1.1 988 Myles 3.430.2.7 Hospit a .3.616383 l .8 2021-08-03 2021-08-03 Orders Harmouch, 1.2.840.1 142105657 2099 282665 Methodi 00:00:00 00:00:00 Only Manar Ali 32271.1.[address] 3.430.2.7 Hospit a .3.248635 l .8 2021-08-03 2021-08-03 Orders Harmouch, 1.2.840.1 223281216 2099 691178 Methodi 00:00:00 00:00:00 Only Manar Ali 06117.1.[address] 3.430.2.7 Hospit a .3.723370 l .8 2021-08-02 2021-08-02 Hospital [place], 1.2.840.1 688884881 319 1334129 Methodi 07:04:43 23:59:00 Encounter Manar Ali 79394.1.[address] 3.430.2.7 Hospit a .3.878757 l .8 2021-08-02 2021-08-02 [facility], 1.2.840.1 607819864 658 5276590 Methodi 07:04:43 23:59:00 Encounter Virgen Morales 09516.1.[address] 3.430.2.7 Hospit a .3.767062 l .8 2021-08-02 2021-08-02 Travel 1.2.840.1 1.2.354.794 5885 999970 Methodi 00:00:00 00:00:[address] 3.430.2.7 0.2.7.3.698 Ho spita .3.057385 084.8 l .8 2021-08-02 2021-08-02 Travel 1.2.840.1 1.2.758.480 0075 339045 Methodi 00:00:00 00:00:[address] 3.430.2.7 0.2.7.3.698 Ho spita .3.481981 084.8 l .8 2021-07-30 2021-07-30 [facility] Paddy Gregory 1.2.840.1 [id number] 2 484677767 Methodi 07:48:00 23:59:[address] 3.430.2.7 Hospit a .3.941654 l .8 2021-07-30 2021-07-30 [facility] Paddy Gregory 1.2.840.1 [id number] 2 284724628 Methodi 07:48:00 23:59:[address] 3.430.2.7 Hospit a .3.444532 l .8 2021-07-30 2021-07-30 Travel 1.2.840.1 1.2.741.523 0602 993103 Methodi 00:00:00 00:00:[address] 3.430.2.7 0.2.7.3.698 Ho spita .3.260529 084.8 l .8 2021-07-30 2021-07-30 Travel 1.2.840.1 1.2.807.190 1096 390609 Methodi 00:00:00 00:00:[address] 3.430.2.7 0.2.7.3.698 Ho spita .3.540660 084.8 l .8 2021-07-23 2021-07-23 Refill Harmouch, 1.2.840.1 536933471 2100 611608 Methodi 00:00:00 00:00:[address] Virgen Ali [address]1160.1.[address] 3.430.2.7 Hospit a .3.765604 l .8 2021-07-23 2021-07-23 Refill Harmouch, 1.2.840.1 091068608 2099 057113 Methodi 00:00:00 00:00:[address] 3.430.2.7 Hospit a .3.761560 l .8 2021-07-20 2021-07-20 Paddy Rodriguez 1.2.840.1 [id number] 21 30851370 Methodi 00:00:00 00:00:[address] 3.430.2.7 Hospit a .3.666356 l .8 2021-07-20 2021-07-20 Telephone Desiree, 1.2.840.1 [id number] 671 0350067 Methodi 00:00:00 00:00:[address] 3.430.2.7 Hospit a .3.833259 l .8 2021-07-20 2021-07-20 Travel 1.2.840.1 1.2.866.361 5096 938639 Methodi 00:00:00 00:00:[address] 3.430.2.7 0.2.7.3.698 Ho spita .3.967289 084.8 l .8 2021-07-20 2021-07-20 Orders Paddy Gregory 1.2.840.1 [id number] 21 39375048 Methodi 00:00:00 00:00:[address] 3.430.2.7 Hospit a .3.971772 l .8 2021-07-20 2021-07-20 Telephone Ramírez, 1.2.840.1 848681248 758 8775615 Methodi 00:00:00 00:00:[address] 3.430.2.7 Hospit a .3.511376 l .8 2021-07-20 2021-07-20 Travel 1.2.840.1 1.2.222.580 3064 507777 Methodi 00:00:00 00:00:[address] 3.430.2.7 0.2.7.3.698 Ho spita .3.030065 084.8 l .8 2021-07-19 2021-07-19 Orders Lamotte, 1.2.840.1 354801208 Methodi 00:00:00 00:00:00 Only Mhakea 88914.1.[address] 3.430.2.7 Hospit a .3.508703 l .8 2021-07-19 2021-07-19 Social Lamotte, 1.2.840.1 191010123 93 Methodi 00:00:00 00:00:00 Work Mhakea 52993.1.[address] 3.430.2.7 Hospit a .3.799212 l .8 2021-07-19 2021-07-19 Orders Lamotte, 1.2.840.1 476428512 Methodi 00:00:00 00:00:00 Only Mhakea 78749.1.[address] 3.430.2.7 Hospit a .3.364730 l .8 2021-07-19 2021-07-19 Social Lamotte, 1.2.840.1 840945291 Methodi 00:00:00 00:00:00 Work Mhakea 76362.1.[address] 3.430.2.7 Hospit a .3.121262 l .8 2021-07-18 2021-07-18 Office Paddy Gregory 1.2.840.1 473214701 21 22643495 Methodi 10:00:00 11:08:[address] 3.430.2.7 Hospit a .3.492174 l .8 2021-07-18 2021-07-18 Office Paddy Gregory 1.2.840.1 871588293 21 24809984 Methodi 10:00:00 11:08:[address] 3.430.2.7 Hospit a .3.629897 l .8 2021-07-18 2021-07-18 Telephone Desiree, 1.2.840.1 039280734 581 6095825 Methodi 00:00:00 00:00:[address] 3.430.2.7 Hospit a .3.263950 l .8 2021-07-18 2021-07-18 Travel 1.2.840.1 1.2.646.250 5978 905481 Methodi 00:00:00 00:00:[address] 3.430.2.7 0.2.7.3.698 Ho spita .3.230220 084.8 l .8 2021-07-18 2021-07-18 Outpatient PADDY GREGORY [facility] 871 [id number] [place] 00:00:00 00:00:[address] 2021-07-18 2021-07-18 Telephone Desiree, 1.2.840.1 [id number] 327 6367409 Methodi 00:00:00 00:00:[address] 3.430.2.7 Hospit a .3.792464 l .8 2021-07-18 2021-07-18 Travel 1.2.840.1 1.2.956.616 4700 297331 Methodi 00:00:00 00:00:[address] 3.430.2.7 0.2.7.3.698 Ho spita .3.580502 084.8 l .8 2021-07-04 2021-07-04 Office Génesis, 1.2.840.1 022650606 2099 473381 Methodi 08:40:00 09:43:25 Visit Virgen Morales 05711.1.[address] 3.430.2.7 Hospit a .3.308677 l .8 2021-07-04 2021-07-04 Office Génesis, 1.2.840.1 449333294 2099 969928 Methodi 08:40:00 09:43:25 Visit Virgen Morales 71506.1.[address] 3.430.2.7 Hospit a .3.874984 l .8 2021-07-04 2021-07-04 Travel 1.2.840.1 1.2.666.938 5951 923902 Methodi 00:00:00 00:00:[address] 3.430.2.7 0.2.7.3.698 Ho spita .3.489641 084.8 l .8 2021-07-04 2021-07-04 Travel 1.2.840.1 1.2.453.453 7954 892308 Methodi 00:00:00 00:00:[address] 3.430.2.7 0.2.7.3.698 Ho spita .3.677499 084.8 l .8 2021-06-22 2021-06-22 Office Nena, 1.2.840.1 [id number] 389950 4840 Methodi 09:45:00 09:54:40 Visit Dhiraj Nickerson 06557.1.[address] 3.430.2.7 Hospit a .3.752899 l .8 2021-06-22 2021-06-22 Office Barrett, 1.2.840.1 [id number] 851660 4246 Methodi 09:45:00 09:54:40 Visit Dhiraj Caldwell. 02331.1.[address] 3.430.2.7 Hospit a .3.906558 l .8 2021-06-22 2021-06-22 Travel 1.2.840.1 1.2.110.224 6277 888338 Methodi 00:00:00 00:00:[address] 3.430.2.7 0.2.7.3.698 Ho spita .3.653321 084.8 l .8 2021-06-22 2021-06-22 Travel 1.2.840.1 1.2.155.104 1233 503267 Methodi 00:00:00 00:00:[address] 3.430.2.7 0.2.7.3.698 Ho spita .3.045548 084.8 l .8 2021-06-14 2021-06-14 Clinical Barrett, 1.2.840.1 647456433 075 Methodi 20:30:00 20:30:00 Support Dhiraj Caldwell. 43914.1.[address] 3.430.2.7 Hospit a .3.603040 l .8 2021-06-14 2021-06-14 Clinical Barrett, 1.2.840.1 705351861 56646 Methodi 20:30:00 20:30:00 Support Dhiraj Caldwell. 78352.1.[address] 3.430.2.7 Hospit a .3.282280 l .8 2021-06-14 2021-06-14 Travel 1.2.840.1 1.2.344.378 0150 709613 Methodi 00:00:00 00:00:[address] 3.430.2.7 0.2.7.3.698 Ho spita .3.550769 084.8 l .8 2021-06-14 2021-06-14 Travel 1.2.840.1 1.2.829.562 6704 455497 Methodi 00:00:00 00:00:[address] 3.430.2.7 0.2.7.3.698 Ho spita .3.041546 084.8 l .8 2021-06-11 2021-06-11 [facility], 1.2.840.1 2099381 Methodi 00:00:00 00:00:00 [address] 3.430.2.7 Hospit a .3.980436 l .8 2021-06-11 2021-06-11 [facility], 1.2.840.1 4672532122099381 Methodi 00:00:00 00:00:00 [address] 3.430.2.7 Hospit a .3.597140 l .8 2021-06-06 2021-06-06 [facility], 1.2.840.1 [id number] 231 Methodi 06:52:26 23:59:00 Encounter Dhiraj Caldwell. 52908.1.[address] 3.430.2.7 Hospit a .3.907203 l .8 2021-06-06 2021-06-06 [facility], 1.2.840.1 [id number] 231 Methodi 06:52:26 23:59:00 Encounter Dhiraj Caldwell. 12780.1.[address] 3.430.2.7 Hospit a .3.705394 l .8 2021-06-06 2021-06-06 Travel 1.2.840.1 1.2.102.301 6443 500240 Methodi 00:00:00 00:00:[address] 3.430.2.7 0.2.7.3.698 Ho spita .3.996432 084.8 l .8 2021-06-06 2021-06-06 Travel 1.2.840.1 1.2.603.097 2995 483903 Methodi 00:00:00 00:00:[address] 3.430.2.7 0.2.7.3.698 Ho spita .3.966959 084.8 l .8 2021-06-04 2021-06-04 Lab [facility], 1.2.840.1 [id number] 21 [id number] Methodi 00:50:00 00:55:[address] 3.430.2.7 Hospit a .3.006000 l .8 2021-06-04 2021-06-04 Lab Moody, 1.2.840.1 [id number] Methodi 00:50:00 00:55:[address] 3.430.2.7 Hospit a .3.789586 l .8 2021-06-04 2021-06-04 Refill Hinkle, 1.2.840.1 [id number] 048655 4820 Methodi 00:00:00 00:00:00 Zenithe 80661.1.1 877 Myles 3.430.2.7 Hospit a .3.445841 l .8 2021-06-04 2021-06-04 Refill Hinkle, 1.2.840.1 [id number] 432151 9131 Methodi 00:00:00 00:00:00 Zenithe 35871.1.1 877 Myles 3.430.2.7 Hospit a .3.893882 l .8 2021-06-01 2021-06-01 Lab Moody, 1.2.840.1 [id number] 35803950 Methodi 00:25:00 00:30:[address] 3.430.2.7 Hospit a .3.209158 l .8 2021-05-25 2021-05-25 Travel 1.2.840.1 1.2.343.299 7708 844184 Methodi 00:00:00 00:00:[address] 3.430.2.7 0.2.7.3.698 Ho spita .3.628896 084.8 l .8 2021-05-23 2021-05-23 Clinical Dhiraj BarrettIsabella 1.2.840.1 96004 5001 [id number] Methodi 15:30:00 15:30:00 Support Angel Ross 50038.1.[address] 3.430.2.7 Hospit a .3.064385 l .8 2021-05-23 2021-05-23 Office Nena 1.2.840.1 [id number] 384451 9971 Methodi 12:15:00 13:51:57 Visit Dhiraj JaviIsabella 08706.1.[address] 3.430.2.7 Hospit a .3.870136 l .8 2021-05-23 2021-05-23 Travel 1.2.840.1 1.2.145.847 4470 731721 Methodi 00:00:00 00:00:[address] 3.430.2.7 0.2.7.3.698 Ho spita .3.652597 084.8 l .8 2021-05-02 2021-05-02 Telephone Godinez, 1.2.840.1 [id number] 21 [id number] Methodi 00:00:00 00:00:[address] 3.430.2.7 Hospit a .3.919702 l .8 2021-04-23 2021-04-23 Outpatient [facility], [facility] [id number] [place] 00:00:00 00:00:00 VIRGEN [address] 2021-03-14 2021-03-14 Outpatient HINKLE, [facility] [id number] 503 [place] 00:00:00 00:00:[address] 2021-02-16 2021-02-16 Outpatient HINKLE, [facility] [id number] 636 [place] 00:00:00 00:00:[address] 2021-02-07 2021-02-07 Outpatient HINKLE, [facility] [id number] [address] [place] [address] 00:00:00 00:00:[address] 2021-02-05 2021-02-05 Outpatient Miller_S_AH VFP VFP 799 132-202 [facility] 03:11:00 03:11:00 27968 Family Practic e 2020-10-03 2020-10-03 Outpatient Mariaelena-Mbayo VFP VFP 799 132-202 [facility] 03:03:00 03:03:00 _A_AH 20381 Family Practic e 2020-10-03 2020-10-03 Outpatient Mariaelena-Mbayo VFP VFP 799 132-202 [facility] 03:03:00 03:03:00 _A_AH 08523 Family Practic e 2020-09-21 2020-09-21 Outpatient Mariaelena-Mbayo VFP VFP 799 [id number] [facility] 04:47:00 04:47:00 _A_AH 24426 Family Practic e 2020-09-05 2020-09-05 Keira VFP [place] - [id number] V illage 00:00:00 00:00:00 Mariaelena-Mbay [facility] Fam ning lo DADO OPERATOR: Medical - Practi c [address] [email or web address]_ e [facility], [address], [place] [address] , Ph. 2020-08-29 2020-08-29 Outpatient ARIN [facility] [id number] [address] [place] [address] 00:00:00 00:00:[address] 2020-08-11 2020-08-11 Outpatient Mariaelena-Mbayo VFP VFP 799 132-202 [facility] 06:19:00 06:19:00 _A_AH 24609 Family Practic e 2020-08-01 2020-08-01 Outpatient Mariaelena-Mbayo VFP VFP 799 132-202 [facility] 02:09:00 02:09:00 _A_AH 59546 Family Practic e 2020-07-31 2020-07-31 Outpatient Mariaelena-Mbayo VFP VFP 799 132-202 [facility] 07:17:00 07:17:00 _A_AH 16106 Family Practic e 2020-07-28 2020-07-28 Outpatient Mariaelena-Mbayo VFP VFP 799 132-202 [facility] 04:44:00 04:44:00 _A_AH 98293 Family Practic e 2020-07-26 2020-07-26 Outpatient Araceli VFP VFP [address] 06:23:00 06:23:00 _A_AH 98273 Family Practic e 2020-07-25 2020-07-25 Keira VFP [place] - [id number] V [place] 00:00:00 00:00:00 [place] Fam ning lo DADO OPERATOR: Medical - Practi c [address] _[email or web address]_ e [facility], [address], [place] [address] , Ph. 2020-05-02 2020-05-02 Outpatient NICKIE, [facility] [id number] [place] 00:00:00 00:00:00 RANJIT [address] 2020-04-21 2020-04-21 Outpatient SCHIESSER, [place] [id number] [id number] [place] 00:00:00 00:00:00 JUVE [address] 2020-04-19 2020-04-19 Outpatient NICKIE, [facility] [id number] 8362 [place] 00:00:00 00:00:00 RANJIT [address] 2020-04-19 2020-04-19 Outpatient NICKIE, [facility] [id number] 4850 [place] 00:00:00 00:00:[address] 2020-04-18 2020-04-18 Outpatient SCHIESSER, [facility] 2100 [id number] [place] 00:00:00 00:00:00 JUVE [address] 2020-03-16 2020-03-16 Outpatient SCHIESSER, [facility] [id number] [place] 00:00:00 00:00:00 JUVE [address] 2020-03-15 2020-03-15 Outpatient HINKLE, [facility] [id number] 372 [place] 00:00:00 00:00:[address] 2020-02-28 2020-02-28 Outpatient Mariaelena-Anno VFP VFP [address] 08:19:00 08:19:00 _A_ 15115 Family Practic e 2020-01-28 2020-01-28 Outpatient Araceli [facility] 799 132 [facility] 06:17:00 06:17:00 _A_AH 34796 Family Practic e 2019-12-29 2019-12-29 Outpatient Araceli [facility] 799 132 [facility] 09:01:00 09:01:00 _A_AH 49477 Family Practic e 2019-12-29 2019-12-29 Outpatient Araceli [facility] 799 [facility] 09:01:00 09:01:00 _A_AH 22742 Family Practic e 2019-12-21 2019-12-21 Keira [facility] [place] - [id number] V illage 00:00:00 00:00:00 Dianne [facility] Scot lo DADO OPERATOR: Medical - Practi jessy [address] [email or web address] e [facility], [address] [place] [address], [place] [address] , Ph. 2019-11-18 2019-11-18 Outpatient [facility] [id number] [address] [place] 00:00:00 00:00:[address] 2019-10-20 2019-10-20 [facility] 799 [facility] 07:28:00 07:28:00 _A_AH 16807 Family Practic e 2019-06-03 2019-06-04 Outpatient MOHINI NINO [facility] 2100 [id number] [place] 00:00:00 00:00:[address] Results Test Description Test Time Test Comments Results Result Comments Source Cv stress test 2022-04-03 09:22:33 Test Item Value Reference Range Interpretation Comme nts Resting HR (test code = 9116542718) Resting BP (test code = 1958741564) 198&81 Peak MET Achieved (test code = 6143651702) Protocol Name (test code = 6934965333) Lexiscan Time in Exercise Phase (test code = 00:01:00 4009574481) Max Systolic BP (test code = 9541052172) Max Diastolic BP (test code = 8726738767) Max Heart Rate (test code = 5954635804) Max Predicted Heart Rate (test code = 7486330294) Target HR Formula (test code = (220 - Age)*100% 8288770356) Test Indication (test code = chest pain 4986846341) Arrhy During Ex (test code = 2241100191) ECG Interp Before EX (test code = 9258274648) ECG Interp During Ex (test code = 9241447177) Ex Summary Comment (test code = 4902186805) Overall HR Response to Exercise (test code = 9064248942) Overall BP Response To Exercise (test code = 0809940602) Reason for Termination (test code = Protocol Complete 8740647949) Stress Test Impression (test code = Waveform interpreted in report associated 6264541795) with image study. No interpretation is provided as part of this Stress ECG report.--Electronically Signed By Edith GROVES, Arturo Forrest ([id number]), commercial production editor [place] John ([id number]) on 04/03/2022 4:22:29 AM [facility] stress [id number] 09:22:33 Test Item Value Reference Range Interpretation Comments Resting HR (test code = 9385732531) Resting BP (test code 198&81 = 7229202634) Peak MET Achieved (test code = 1259010716) Protocol Name (test Lexiscan code = 8731922351) Time in Exercise 00:01:00 Phase (test code = 5084418556) Max Systolic BP (test code = 1873528419) Max Diastolic BP (test code = 2490530698) Max Heart Rate (test code = 5206711348) Max Predicted Heart Rate (test code = 2415136857) Target HR Formula (220 - Age)*100% (test code = 4076044269) Test Indication (test chest pain code = 7902203341) Arrhy During Ex (test code = 5599543399) ECG Interp Before EX (test code = 8953807582) ECG Interp During Ex (test code = 0789079455) Ex Summary Comment (test code = 9503792323) Overall HR Response to Exercise (test code = 2819135875) Overall BP Response To Exercise (test code = 7196567518) Reason for Protocol Complete Termination (test code = 2261361506) Stress Test Waveform interpreted in Impression (test code report associated with = 4661317901) image study. No interpretation is provided as part of this Stress ECG report.--Electronically Signed By Arturo Sharma MD ([id number]), commercial production editor [place] John ([id number]) on 04/03/2022 4:22:[address] AM [address]2022-08-01 23:12:21 Test Item Value Reference Range Interpretation Comments Ventricular rate (test code = 253) Atrial rate (test code = 255) TX interval (test code = 266) QRSD interval (test code = 260) QT interval (test code = 264) QTC interval (test code = 265) P axis 1 (test code = 267) QRS axis 1 (test code = 268) T wave axis (test code = 270) EKG impression (test Normal sinus code = 273) rhythm-Normal ECG-In automated comparison with ECG of 24-SEP-2021 11:13,-No significant change was found- [address]2022-08-01 23:12:21 Test Item Value Reference Range Interpretation Comments Ventricular rate (test code = 253) Atrial rate (test code = 255) TX interval (test code = 266) QRSD interval (test code = 260) QT interval (test code = 264) QTC interval (test code = 265) P axis 1 (test code = 267) QRS axis 1 (test code = 268) T wave axis (test code = 270) EKG impression (test Normal sinus code = 273) rhythm-Normal ECG-In automated comparison with ECG of 24-SEP-2021 11:13,-No significant change was found- [address]2022-08-01 23:12:21 Test Item Value Reference Range Interpretation Comments Ventricular rate (test code = 253) Atrial rate (test code = 255) TX interval (test code = 266) QRSD interval (test code = 260) QT interval (test code = 264) QTC interval (test code = 265) P axis 1 (test code = 267) QRS axis 1 (test code = 268) T wave axis (test code = 270) EKG impression (test Normal sinus code = 273) rhythm-Normal ECG-In automated comparison with ECG of 24-SEP-2021 11:13,-No significant change was found- Nicole MartinezARS-CoV-2 (COVID-19) RNA [Presence] in Respiratory specimen by MONICA with probe [id number] 12:56:24 Test Item Value Reference Range Interpretation Comments SARS-CoV-2 (COVID-19) RNA Not detected [Presence] in Respiratory specimen by MONICA with probe detection (test code = 53751-3) Whether patient is employed in a Unknown healthcare setting (test code = 15043-1) Whether the patient has symptoms Unknown related to condition of interest (test code = 38709-5) Whether the patient was Unknown hospitalized for condition of interest (test code = 13783-0) Whether the patient was admitted Unknown to intensive care unit (ICU) for condition of interest (test code = 09824-3) Whether patient resides in a Unknown congregate care setting (test code = 43744-4) status (test code = Unknown 45774-1) Date and time of symptom onset Unknown (test code = 02909-1) Hepatic function [id number] 11:59:00 Test Item Value Reference Range Interpretation Comments Protein (test code 6.9 g/dL 6.1-8.1 = 2885-2) Albumin, S (test 3.6 g/dL 3.6-5.1 code = 1751-7) Globulin, total See_Comment [Automated (test code = message] The 17906-2) system which generated this result transmitted reference range : 1.9 - 3.7 g/dL (calc). The reference range was not used to interpret this result as normal/abnormal . Albumin/globulin See_Comment [Automated ratio (test code = message] The ) system which generated this result transmitted reference range : 1.0 - 2.5 (calc ). The reference range was not used to interpr et this result as normal/abnormal . Total bilirubin 0.4 mg/dL 0.2-1.2 (test code = 1974-) Bilirubin direct 0.1 mg/dL See_Comment [Automated (test code = message] The 1968-03) system which generated this result transmitted reference range : < OR = 0.2. The reference range was not used to interpret this result as normal/abnormal . Bilirubin, See_Comment [Automated indirect (test message] The code = 1970-1) system which generated this result transmitted reference range : 0.2 - 1.2 mg/dL (calc). The reference range was not used to interpret this result as normal/abnormal . Alkaline 71 U/L 37-153 phosphatase (test code = 6768-6) AST (test code = 19 U/L 10-35 1920-8) ALT (test code = 21 U/L 6-29 1742-6) MARIO ALBERTO (test code = FASTING:NO FASTING: MARIO ALBERTO) NO RAC (test code = Performing RAC) Organization Information: Site ID: A Name: [facility] Address: [address] [place] [address] Director: Luke Vianey CombsJoannaMercy Health [facility] HospitalFerritin [id number] 11:59:00 Test Item Value Reference Range Interpretation Comments Ferritin level (test 80 ng/mL 16 code = 2276-4) MARIO ALBERTO (test code = MARIO ALBERTO) FASTING:NO FASTING: NO RAC (test code = RAC) Performing Organization Information: Site ID: A Name: [facility] Address: [address] [place] [address] Director: [facility] CenterUrinalysis, automated with [id number] 11:59:00 Test Item Value Reference Range Interpretation Comments Color, UA (test code YELLOW YELLOW = 5778-6) Appearance (test CLEAR CLEAR code = 5767-9) Specific gravity, 1.001-1.035 urine (test code = 5811-5) pH, urine (test code 5-8 = 5803-2) Glucose, urine (test NEGATIVE NEGATIVE code = 52723-8) Bilirubin, UA (test NEGATIVE NEGATIVE code = 5770-3) Ketones, UA (test NEGATIVE NEGATIVE code = 2514-8) Occult blood, urine TRACE NEGATIVE A (test code = 5794-3) Protein, UA (test NEGATIVE NEGATIVE code = 77092-7) Nitrite, UA (test NEGATIVE NEGATIVE code = 5802-4) Leukocyte esterase, TRACE NEGATIVE A UA (test code = 5799-2) WBC, UA (test code = NONE SEEN See_Comment [Autom ated 5821-4) message] The system which generated this result transmitted reference range : < OR = 5 /HPF. The reference range was not used to interpr et this result as normal/abnormal . RBC, UA (test code = NONE SEEN See_Comment [Autom ated 57155-9) message] The system which generated this result transmitted reference range : < OR = 2 /HPF. The reference range was not used to interpr et this result as normal/abnormal . Squamous epithelial 0-5 See_Comment [Automa derik cells, UA (test code message ] The = 45076-5) system which generated this result transmitted reference range : < OR = 5 /HPF. The reference range was not used to interpr et this result as normal/abnormal . Bacteria, UA (test NONE SEEN NONE SEEN /HPF code = 5769-5) Hyaline casts, UA NONE SEEN NONE SEEN /LPF (test code = 5796-8) MARIO ALBERTO (test code = FASTING:NO MARIO ALBERTO) FASTING: NO RAC (test code = Performing RAC) Organization Information: Site ID: RGA Name: [facility] Address: [address] [place] [address] Director: Luke Marshall Lab Interpretation Abnormal (test code = 87370-8) [facility] iron binding [id number] 11:59:00 Test Item Value Reference Range Interpretation Comments Iron level (test See_Comment [Automated code = 2498-4) message] The system which generated this result transmitted reference range : 45 - 160 mcg/dL . The reference range was not used to interpr et this result as normal/abnormal . Iron binding See_Comment L [Automated capacity (test code message] The = 2500-7) system which generated this result transmitted reference range : 250 - 450 mcg/d L (calc). The reference range was not used to interpret this result as normal/abnormal . Iron saturation See_Comment [Automated (test code = 2502-3) message ] The system which generated this result transmitted reference range : 16 - 45 % (calc ). The reference range was not used to interpr et this result as normal/abnormal . MARIO ALBERTO (test code = FASTING:NO MARIO ALBERTO) FASTING: NO RAC (test code = Performing RAC) Organization Information: Site ID: RGA Name: [facility] Address: [address] [place] [phone] Director: Luke Marshall Lab Interpretation Abnormal (test code = 15724-5) [facility] DIRECT [id number] 11:59:00 Test Item Value Reference Range Interpretation Comments Cholesterol, total 153 mg/dL See_Comment [Automat ed (test code = 2093-3) message ] The system which generated this result transmitted reference range : <=200. The reference range was not used to interpret this result as normal/abnormal . HDL cholesterol 66 mg/dL See_Comment [Automated (test code = 2085-9) message ] The system which generated this result transmitted reference range : > OR = 50. The reference range was not used to interpret this result as normal/abnormal . Triglycerides (test 110 mg/dL See_Comment [Automa derik code = 2571-8) message] The system which generated this result transmitted reference range : <=150. The reference range was not used to interpret this result as normal/abnormal . LDL cholesterol mg/dL (calc) Reference ra nge: calculated (test <100 Desira ble code = 79508-0) range <100 m g/dL for primary prevention; <70 mg/dL for patients with C HD or diabetic patients with > or = 2 CHD risk factors. LDL-C is now calculated using the Rolan-Galarza calculation, which is a validated novel method providin g better accuracy than the Friedewald equation in the estimation of LDL-C. Rolan S S et al. BREN. 2013;310(19): 1607-3243 (http://educati on .[employer] .com/faq/XMS405 ) Cholesterol/HDL See_Comment [Automated ratio (test code = message] The 9830-1) system which generated this result transmitted reference range : <5.0 (calc). Th e reference range was not used to interpret this result as normal/abnormal . Non-HDL cholesterol See_Comment For helen ents with (test code = diabetes plus 1 31654-4) major ASCVD ris k factor, treatin g to a non-HDL-C goal of <100 mg/dL (LDL-C of <70 mg/dL) is considered a therapeutic option. [Automated message] The system which generated this result transmitted reference range : <130 mg/dL (calc). The reference range was not used to interpret this result as normal/abnormal . MARIO ALBERTO (test code = FASTING:NO MARIO ALBERTO) FASTING: NO RAC (test code = Performing RAC) Organization Information: Site ID: RGA Name: [facility] Address: [address] [place] [phone] Director: Fitzgerald Vianey [facility] HospitalHepatic function [id number] 11:59:00 Test Item Value Reference Range Interpretation Comments Protein (test code 6.9 g/dL 6.1-8.1 = 2885-2) Albumin, S (test 3.6 g/dL 3.6-5.1 code = 1757) Globulin, total See_Comment [Automated (test code = message] The ) system which generated this result transmitted reference range : 1.9 - 3.7 g/dL (calc). The reference range was not used to interpret this result as normal/abnormal . Albumin/globulin See_Comment [Automated ratio (test code = message] The ) system which generated this result transmitted reference range : 1.0 - 2.5 (calc ). The reference range was not used to interpr et this result as normal/abnormal . Total bilirubin 0.4 mg/dL 0.2-1.2 (test code = 1974-10) Bilirubin direct 0.1 mg/dL See_Comment [Automated (test code = message] The 1968-03) system which generated this result transmitted reference range : < OR = 0.2. The reference range was not used to interpret this result as normal/abnormal . Bilirubin, See_Comment [Automated indirect (test message] The code = 1970-09) system which generated this result transmitted reference range : 0.2 - 1.2 mg/dL (calc). The reference range was not used to interpret this result as normal/abnormal . Alkaline 71 U/L 37-153 phosphatase (test code = 6768-6) AST (test code = 19 U/L 10-35 1920-8) ALT (test code = 21 U/L 6-29 1742-6) MARIO ALBERTO (test code = FASTING:NO FASTING: MARIO ALBERTO) NO RAC (test code = Performing RAC) Organization Information: Site ID: WENDY Name: [facility] Address: [address] [place] [phone] Director: Luke Marshall [facility] [id number] 11:59:00 Test Item Value Reference Range Interpretation Comments Ferritin level (test 80 ng/mL 16-288 code = 2276-4) MARIO ALBERTO (test code = MARIO ALBERTO) FASTING:NO FASTING: NO RAC (test code = RAC) Performing Organization Information: Site ID: WENDY Name: [facility] Address: [address] [place] [address] Director: Luke BurciagaTri[facility] HospitalUrinalysis, automated with [id number] 11:59:00 Test Item Value Reference Range Interpretation Comments Color, UA (test code YELLOW YELLOW = 5778-6) Appearance (test CLEAR CLEAR code = 5767-9) Specific gravity, 1.001-1.035 urine (test code = 5811-5) pH, urine (test code 5-8 = 5803-2) Glucose, urine (test NEGATIVE NEGATIVE code = 27258-6) Bilirubin, UA (test NEGATIVE NEGATIVE code = 5770-3) Ketones, UA (test NEGATIVE NEGATIVE code = 2514-8) Occult blood, urine TRACE NEGATIVE A (test code = 5794-3) Protein, UA (test NEGATIVE NEGATIVE code = 55869-3) Nitrite, UA (test NEGATIVE NEGATIVE code = 5802-4) Leukocyte esterase, TRACE NEGATIVE A UA (test code = 5799-2) WBC, UA (test code = NONE SEEN See_Comment [Autom ated 5821-4) message] The system which generated this result transmitted reference range : < OR = 5 /HPF. The reference range was not used to interpr et this result as normal/abnormal . RBC, UA (test code = NONE SEEN See_Comment [Autom ated 22246-0) message] The system which generated this result transmitted reference range : < OR = 2 /HPF. The reference range was not used to interpr et this result as normal/abnormal . Squamous epithelial 0-5 See_Comment [Automa derik cells, UA (test code message ] The = 75655-3) system which generated this result transmitted reference range : < OR = 5 /HPF. The reference range was not used to interpr et this result as normal/abnormal . Bacteria, UA (test NONE SEEN NONE SEEN /HPF code = 5769-5) Hyaline casts, UA NONE SEEN NONE SEEN /LPF (test code = 5796-8) MARIO ALBERTO (test code = FASTING:NO MARIO ALBERTO) FASTING: NO RAC (test code = Performing RAC) Organization Information: Site ID: [facility] Name: [facility] Address: [address] [place] [address] Director: Luke Marshall Lab Interpretation Abnormal (test code = 41140-6) [facility] iron binding [id number] 11:59:00 Test Item Value Reference Range Interpretation Comments Iron level (test See_Comment [Automated code = 2498-4) message] The system which generated this result transmitted reference range : 45 - 160 mcg/dL . The reference range was not used to interpr et this result as normal/abnormal . Iron binding See_Comment L [Automated capacity (test code message] The = 2500-7) system which generated this result transmitted reference range : 250 - 450 mcg/d L (calc). The reference range was not used to interpret this result as normal/abnormal . Iron saturation See_Comment [Automated (test code = 2502-3) message ] The system which generated this result transmitted reference range : 16 - 45 % (calc ). The reference range was not used to interpr et this result as normal/abnormal . MARIO ALBERTO (test code = FASTING:NO MARIO ALBERTO) FASTING: NO RAC (test code = Performing RAC) Organization Information: Site ID: [facility] Name: [facility] Address: [address] [place] [address] Director: Luke Marshall Lab Interpretation Abnormal (test code = 00505-6) [facility]wayLIPID PANEL WITH REFLEX TO DIRECT [id number] 11:59:00 Test Item Value Reference Range Interpretation Comments Cholesterol, total 153 mg/dL See_Comment [Automat ed (test code = 2093-3) message ] The system which generated this result transmitted reference range : <=200. The reference range was not used to interpret this result as normal/abnormal . HDL cholesterol 66 mg/dL See_Comment [Automated (test code = 5-9) message ] The system which generated this result transmitted reference range : > OR = 50. The reference range was not used to interpret this result as normal/abnormal . Triglycerides (test 110 mg/dL See_Comment [Automa derik code = 2571-8) message] The system which generated this result transmitted reference range : <=150. The reference range was not used to interpret this result as normal/abnormal . LDL cholesterol mg/dL (calc) Reference ra nge: calculated (test <100 Desira ble code = 49542-3) range <100 m g/dL for primary prevention; <70 mg/dL for patients with C HD or diabetic patients with > or = 2 CHD risk factors. LDL-C is now calculated using the Zaire calculation, which is a validated novel method providin g better accuracy than the Friedewald equation in the estimation of LDL-C. Rolan Salas S et al. BREN. 2013;310(19): 1304-5894 (http://educati on .[employer] .com/faq/VSJ264 ) Cholesterol/HDL See_Comment [Automated ratio (test code = message] The 9830-1) system which generated this result transmitted reference range : <5.0 (calc). Th e reference range was not used to interpret this result as normal/abnormal . Non-HDL cholesterol See_Comment For helen ents with (test code = diabetes plus 1 29866-7) major ASCVD ris k factor, treatin g to a non-HDL-C goal of <100 mg/dL (LDL-C of <70 mg/dL) is considered a therapeutic option. [Automated message] The system which generated this result transmitted reference range : <130 mg/dL (calc). The reference range was not used to interpret this result as normal/abnormal . MARIO ALBERTO (test code = FASTING:NO MARIO ALBERTO) FASTING: NO RAC (test code = Performing RAC) Organization Information: Site ID: RGA [facility]: [facility] Address: [address] [place] [phone] Director: Luke Burciagaridge [facility]wayHepatic function [id number] 11:59:00 Test Item Value Reference Range Interpretation Comments Protein (test code 6.9 g/dL 6.1-8.1 = 2885-2) Albumin, S (test 3.6 g/dL 3.6-5.1 code = 1751-03) Globulin, total See_Comment [Automated (test code = message] The 96841-9) system which generated this result transmitted reference range : 1.9 - 3.7 g/dL (calc). The reference range was not used to interpret this result as normal/abnormal . Albumin/globulin See_Comment [Automated ratio (test code = message] The ) system which generated this result transmitted reference range : 1.0 - 2.5 (calc ). The reference range was not used to interpr et this result as normal/abnormal . Total bilirubin 0.4 mg/dL 0.2-1.2 (test code = 1974-10) Bilirubin direct 0.1 mg/dL See_Comment [Automated (test code = message] The 1968-03) system which generated this result transmitted reference range : < OR = 0.2. The reference range was not used to interpret this result as normal/abnormal . Bilirubin, See_Comment [Automated indirect (test message] The code = 1970-09) system which generated this result transmitted reference range : 0.2 - 1.2 mg/dL (calc). The reference range was not used to interpret this result as normal/abnormal . Alkaline 71 U/L 37-153 phosphatase (test code = 6768-6) AST (test code = 19 U/L 10-35 1920-8) ALT (test code = 21 U/L 6-29 1742-6) MARIO ALBERTO (test code = FASTING:NO FASTING: MARIO ALBERTO) NO RAC (test code = Performing RAC) Organization Information: Site ID: [facility] Name: [facility] Address: [address] [place] [phone] Director: Luke Marshall [facility] [id number] 11:59:00 Test Item Value Reference Range Interpretation Comments Ferritin level (test 80 ng/mL 16-288 code = 2276-4) MARIO ALBERTO (test code = MARIO ALBERTO) FASTING:NO FASTING: NO RAC (test code = RAC) Performing Organization Information: Site ID: [facility] Name: [facility] Address: [address] [place] [phone] Director: Luke Marshall [facility] CenterUrinalysis, automated with [id number] 11:59:00 Test Item Value Reference Range Interpretation Comments Color, UA (test code YELLOW YELLOW = 5778-6) Appearance (test CLEAR CLEAR code = 5767-9) Specific gravity, 1.001-1.035 urine (test code = 5811-5) pH, urine (test code 5-8 = 5803-2) Glucose, urine (test NEGATIVE NEGATIVE code = 20675-2) Bilirubin, UA (test NEGATIVE NEGATIVE code = 5770-3) Ketones, UA (test NEGATIVE NEGATIVE code = 2514-8) Occult blood, urine TRACE NEGATIVE A (test code = 5794-3) Protein, UA (test NEGATIVE NEGATIVE code = 91094-8) Nitrite, UA (test NEGATIVE NEGATIVE code = 5802-4) Leukocyte esterase, TRACE NEGATIVE A UA (test code = 5799-2) WBC, UA (test code = NONE SEEN See_Comment [Autom ated 5821-4) message] The system which generated this result transmitted reference range : < OR = 5 /HPF. The reference range was not used to interpr et this result as normal/abnormal . RBC, UA (test code = NONE SEEN See_Comment [Autom ated 02511-9) message] The system which generated this result transmitted reference range : < OR = 2 /HPF. The reference range was not used to interpr et this result as normal/abnormal . Squamous epithelial 0-5 See_Comment [Automa derik cells, UA (test code message ] The = 94863-0) system which generated this result transmitted reference range : < OR = 5 /HPF. The reference range was not used to interpr et this result as normal/abnormal . Bacteria, UA (test NONE SEEN NONE SEEN /HPF code = 5769-5) Hyaline casts, UA NONE SEEN NONE SEEN /LPF (test code = 5796-8) MARIO ALBERTO (test code = FASTING:NO MARIO ALBERTO) FASTING: NO RAC (test code = Performing RAC) Organization Information: Site ID: RGA Name: [facility] Lab Address: [address] [place] [address] Director: Luke Marshall Lab Interpretation Abnormal (test code = 05566-7) [facility] iron binding [id number] 11:59:00 Test Item Value Reference Range Interpretation Comments Iron level (test See_Comment [Automated code = 2498-4) message] The system which generated this result transmitted reference range : 45 - 160 mcg/dL . The reference range was not used to interpr et this result as normal/abnormal . Iron binding See_Comment L [Automated capacity (test code message] The = 2500-7) system which generated this result transmitted reference range : 250 - 450 mcg/d L (calc). The reference range was not used to interpret this result as normal/abnormal . Iron saturation See_Comment [Automated (test code = 2502-3) message ] The system which generated this result transmitted reference range : 16 - 45 % (calc ). The reference range was not used to interpr et this result as normal/abnormal . MARIO ALBERTO (test code = FASTING:NO MARIO ALBERTO) FASTING: NO RAC (test code = Performing RAC) Organization Information: Site ID: RGA Name: [facility] [facility] Lab Address: [address] [place] [phone] Director: Luke Marshall Lab Interpretation Abnormal (test code = 67077-6) [facility] [id number] 11:59:00 Test Item Value Reference Range Interpretation Comments Cholesterol, total 153 mg/dL See_Comment [Automat ed (test code = 2093-3) message ] The system which generated this result transmitted reference range : <=200. The reference range was not used to interpret this result as normal/abnormal . HDL cholesterol 66 mg/dL See_Comment [Automated (test code = 2085-9) message ] The system which generated this result transmitted reference range : > OR = 50. The reference range was not used to interpret this result as normal/abnormal . Triglycerides (test 110 mg/dL See_Comment [Automa derik code = 2571-8) message] The system which generated this result transmitted reference range : <=150. The reference range was not used to interpret this result as normal/abnormal . LDL cholesterol mg/dL (calc) Reference ra nge: calculated (test <100 Desira ble code = 26963-3) range <100 m g/dL for primary prevention; <70 mg/dL for patients with C HD or diabetic patients with > or = 2 CHD risk factors. LDL-C is now calculated using the Zaire calculation, which is a validated novel method providin g better accuracy than the Friedewald equation in the estimation of LDL-C. Rolan S S et al. BREN. 2013;310(19): 2810-7159 (http://educati on .[employer] .com/faq/RPB511 ) Cholesterol/HDL See_Comment [Automated ratio (test code = message] The 9830-1) system which generated this result transmitted reference range : <5.0 (calc). Th e reference range was not used to interpret this result as normal/abnormal . Non-HDL cholesterol See_Comment For helen ents with (test code = diabetes plus 1 65834-5) major ASCVD ris k factor, treatin g to a non-HDL-C goal of <100 mg/dL (LDL-C of <70 mg/dL) is considered a therapeutic option. [Automated message] The system which generated this result transmitted reference range : <130 mg/dL (calc). The reference range was not used to interpret this result as normal/abnormal . MARIO ALBERTO (test code = FASTING:NO MARIO ALBERTO) FASTING: NO RAC (test code = Performing RAC) Organization Information: Site ID: RGA Name: [facility] Lab Address: [address] [place] [address] Director: Luke Marshall [facility], Enzyme Activity, [id number] 22:09:00 Test Item Value Reference Interpretation Comments Range TPMT activity Units/mL Reference Rang e:Normal: 15.1 (test code = RBC - 26.4Heterozyg ous for low 54344-4) TPMT variant: 6 .3 - 15.0Homozygous for low TPMT variant: <6.3 Interpretation Comment The above res ults can be (test code = interpreted as Heterozygous 6798635) for alow activi ty variant of red blood cell ThiopurineMethy ltransferase activity. For p atients having anintrinsic low level of TPMT, recent RB C transfusion canvariably inc rease their assayed enzymat ic activitydependi ng on the amount and circ ulating half-life of th etransfused red blood cells . This test was developed a nd its performance characteristics determined by [facility]. It has not been cleared or appr ovedby the Food and Drug A dministration. This case has b een reviewed, approved, inter preted andelectronical ly signed by Tejas Curtis , PhD, [facility]. Methodology: Comment Enzymatic Endpo int/Liquid (test code = Chromatography - Tandem Mass 09287-9) Spectrometry(LC -MS/MS) MARIO ALBERTO (test code = Performed at: MARIO ALBERTO) - [facility] [id number] [place] [id number] Director: Cliff Stack MD, Phone: [phone] [facility], Enzyme Activity, [id number] 22:09:00 Test Item Value Reference Interpretation Comments Range TPMT activity Units/mL Reference Rang e:Normal: 15.1 (test code = RBC - 26.4Heterozyg ous for low 74210-6) TPMT variant: 6 .3 - 15.0Homozygous for low TPMT variant: <6.3 Interpretation Comment The above res ults can be (test code = interpreted as Heterozygous 3410917) for alow activi ty variant of red blood cell ThiopurineMethy ltransferase activity. For p atients having anintrinsic low level of TPMT, recent RB C transfusion canvariably inc rease their assayed enzymat ic activitydependi ng on the amount and circ ulating half-life of th etransfused red blood cells . This test was developed a nd its performance characteristics determined by [facility]. It has not been cleared or appr ovedby the Food and Drug A dministration. This case has b een reviewed, approved, inter preted andelectronical ly signed by Tejas Curtis , PhD, [facility]. Methodology: Comment Enzymatic Endpo int/Liquid (test code = Chromatography - Tandem Mass 07339-0) Spectrometry(LC -MS/MS) MARIO ALBERTO (test code = Performed at: MARIO ALBERTO) - [facility] [id number] [place] [id number] Director: Cliff Stack MD, Phone: [phone] [facility], Enzyme Activity, [id number] 22:09:00 Test Item Value Reference Interpretation Comments Range TPMT activity Units/mL Reference Rang e:Normal: 15.1 (test code = RBC - 26.4Heterozyg ous for low 87316-0) TPMT variant: 6 .3 - 15.0Homozygous for low TPMT variant: <6.3 Interpretation Comment The above res ults can be (test code = interpreted as Heterozygous 4738542) for alow activi ty variant of red blood cell ThiopurineMethy ltransferase activity. For p atients having anintrinsic low level of TPMT, recent RB C transfusion canvariably inc rease their assayed enzymat ic activitydependi ng on the amount and circ ulating half-life of th etransfused red blood cells . This test was developed a nd its performance characteristics determined by [facility]. It has not been cleared or appr ovedby the Food and Drug A dministration. This case has b een reviewed, approved, inter preted andelectronical ly signed by Tejas Curtis , PhD, [facility]. Methodology: Comment Enzymatic Endpo int/Liquid (test code = Chromatography - Tandem Mass 16433-3) Spectrometry(LC -MS/MS) MARIO ALBERTO (test code = Performed at: [facility]) - [facility], [place] [id number] Director: Cliff Stack MD, Phone: [phone] [facility], WITH REFLEX TO [id number] 17:32:00 Test Item Value Reference Interpretation Comments Range Color, UA (test code YELLOW YELLOW = 5778-6) Appearance (test CLEAR CLEAR code = 5767-9) Specific gravity, 1.001-1.035 urine (test code = 5811-5) pH, urine (test code 5-8 = 5803-2) Glucose, urine (test NEGATIVE NEGATIVE code = 45766-2) Bilirubin, UA (test NEGATIVE NEGATIVE code = 5770-3) Ketones, UA (test NEGATIVE NEGATIVE code = 2514-8) Occult blood, urine TRACE NEGATIVE A (test code = 5794-3) Protein, UA (test NEGATIVE NEGATIVE code = 94575-4) Nitrite, UA (test NEGATIVE NEGATIVE code = 5802-4) Leukocyte esterase, TRACE NEGATIVE A UA (test code = 5799-2) WBC, UA (test code = NONE SEEN See_Comment [Autom ated 5821-4) message] The sy stem which generated this result transmitted reference range : < OR = 5 /HPF. Th e reference range was not used to interpret this result as normal/abnormal . RBC, UA (test code = 3-10 See_Comment A [Autom ated 60064-3) message] The sy stem which generated this result transmitted reference range : < OR = 2 /HPF. Th e reference range was not used to interpret this result as normal/abnormal . Squamous epithelial NONE SEEN See_Comment [Automa derik cells, UA (test code message ] The system = 16064-4) which generated this result transmitted reference range : < OR = 5 /HPF. Th e reference range was not used to interpret this result as normal/abnormal . Bacteria, UA (test NONE SEEN NONE SEEN /HPF code = 5769-5) Hyaline casts, UA NONE SEEN NONE SEEN /LPF (test code = 5796-8) Urine culture (test SEE NOTE CULTURE , URINE, code = 630-4) ROUTINE Micro Number: [id number] Test Status: Fi nal Specimen Source : Urine Specimen Quality: Adequa te Result: Mixed genital sheryl isolated. These superficial bacteria are no t indicative of a urinary tract infection. No further organis m identification is warranted on is specimen. If clinically indicated, recollect clean-catch, mid-stream urin e and transfer immediately to Urine Culture Transport Tube. MARIO ALBERTO (test code = FASTING:YES MARIO ALBERTO) FASTING: YES RAC (test code = Performing RAC) Organization Information: Site ID: RGA [facility]: [facility] Lab Address: [address] [place] [phone] Director: Luke Marshall Lab Interpretation Abnormal (test code = 75179-0) [facility]FLEX TO [id number] 17:32:00 Test Item Value Reference Interpretation Comments Range Color, UA (test code YELLOW YELLOW = 5778-6) Appearance (test CLEAR CLEAR code = 5767-9) Specific gravity, 1.001-1.035 urine (test code = 5811-5) pH, urine (test code 5-8 = 5803-2) Glucose, urine (test NEGATIVE NEGATIVE code = 54596-2) Bilirubin, UA (test NEGATIVE NEGATIVE code = 5770-3) Ketones, UA (test NEGATIVE NEGATIVE code = 5754-8) Occult blood, urine TRACE NEGATIVE A (test code = 5794-3) Protein, UA (test NEGATIVE NEGATIVE code = 58284-5) Nitrite, UA (test NEGATIVE NEGATIVE code = 5802-4) Leukocyte esterase, TRACE NEGATIVE A UA (test code = 5799-2) WBC, UA (test code = NONE SEEN See_Comment [Autom ated 5821-4) message] The sy stem which generated this result transmitted reference range : < OR = 5 /HPF. Th e reference range was not used to interpret this result as normal/abnormal . RBC, UA (test code = 3-10 See_Comment A [Autom ated 36080-1) message] The sy stem which generated this result transmitted reference range : < OR = 2 /HPF. Th e reference range was not used to interpret this result as normal/abnormal . Squamous epithelial NONE SEEN See_Comment [Automa derik cells, UA (test code message ] The system = 22010-1) which generated this result transmitted reference range : < OR = 5 /HPF. Th e reference range was not used to interpret this result as normal/abnormal . Bacteria, UA (test NONE SEEN NONE SEEN /HPF code = 5769-5) Hyaline casts, UA NONE SEEN NONE SEEN /LPF (test code = 5796-8) Urine culture (test SEE NOTE CULTURE , URINE, code = 630-4) ROUTINE Micro Number: [id number] Test Status: Fi nal Specimen Source : Urine Specimen Quality: Adequa te Result: Mixed genital sheryl isolated. These superficial bacteria are no t indicative of a urinary tract infection. No further organis m identification is warranted on th is specimen. If clinically indicated, recollect clean-catch, mid-stream urin e and transfer immediately to Urine Culture Transport Tube. MARIO ALBERTO (test code = FASTING:YES MARIO ALBERTO) FASTING: YES RAC (test code = Performing RAC) Organization Information: Site ID: RGA [facility]: [facility] Lab Address: [address] [place] [phone] Director: Luke Marshall Lab Interpretation Abnormal (test code = 84300-1) [facility] WITH REFLEX TO [id number] 17:32:00 Test Item Value Reference Interpretation Comments Range Color, UA (test code YELLOW YELLOW = 5778-6) Appearance (test CLEAR CLEAR code = 5767-9) Specific gravity, 1.001-1.035 urine (test code = 5811-5) pH, urine (test code 5-8 = 5803-2) Glucose, urine (test NEGATIVE NEGATIVE code = 36239-4) Bilirubin, UA (test NEGATIVE NEGATIVE code = 5770-3) Ketones, UA (test NEGATIVE NEGATIVE code = 2514-8) Occult blood, urine TRACE NEGATIVE A (test code = 5794-3) Protein, UA (test NEGATIVE NEGATIVE code = 30820-8) Nitrite, UA (test NEGATIVE NEGATIVE code = 5802-4) Leukocyte esterase, TRACE NEGATIVE A UA (test code = 5799-2) WBC, UA (test code = NONE SEEN See_Comment [Autom ated 5821-4) message] The sy stem which generated this result transmitted reference range : < OR = 5 /HPF. Th e reference range was not used to interpret this result as normal/abnormal . RBC, UA (test code = 3-10 See_Comment A [Autom ated 16552-6) message] The sy stem which generated this result transmitted reference range : < OR = 2 /HPF. Th e reference range was not used to interpret this result as normal/abnormal . Squamous epithelial NONE SEEN See_Comment [Automa derik cells, UA (test code message ] The system = 68704-5) which generated this result transmitted reference range : < OR = 5 /HPF. Th e reference range was not used to interpret this result as normal/abnormal . Bacteria, UA (test NONE SEEN NONE SEEN /HPF code = 5769-5) Hyaline casts, UA NONE SEEN NONE SEEN /LPF (test code = 5796-8) Urine culture (test SEE NOTE CULTURE , URINE, code = 630-4) ROUTINE Micro Number: [id number] Test Status: Fi nal Specimen Source : Urine Specimen Quality: Adequa te Result: Mixed genital sheryl isolated. These superficial bacteria are no t indicative of a urinary tract infection. No further organis m identification is warranted on th is specimen. If clinically indicated, recollect clean-catch, mid-stream urin e and transfer immediately to Urine Culture Transport Tube. MARIO ALBERTO (test code = FASTING:YES MARIO ALBERTO) FASTING: YES RAC (test code = Performing RAC) Organization Information: Site ID: RGA Name: [facility] Lab Address: [address] [place] [phone] Director: Luke Marshall Lab Interpretation Abnormal (test code = 88811-1) [facility] 25 hydroxy [id number] 13:27:00 Test Item Value Reference Range Interpretation Comments Vitamin D, 69 ng/mL 30-100 Vitamin D Statu s 25-hydroxy (test 25-OH Vitam in D: code = 1988-10) Deficiency: < 20 ng/mLInsufficie ncy : 20 - 29 ng/mLOptimal: > or = 30 ng/mL For 25-OH Vitamin D testing on patients on D2-supplementat ion and patients fo r whom quantitati on of D2 and D3 fractions is required, the QuestAssureD(TM )25 -OH VIT D, (D2,D3), LC/MS/ MS is recommended: order code 9288 8 (patients >2yrs).See Note 1 Note 1 For additional information, please refer to http://[employer] .[employer] m/faq/LCK488 (T his link is being provided for informational/e [employer] ational purpose s only.) MARIO ALBERTO (test code = FASTING:YES FASTING: MARIO ALBERTO) YES RAC (test code = Performing RAC) Organization Information: Site ID: RGA [facility]: [facility] Address: [address] [place] [phone] Director: Luke Marshall [facility] 25 hydroxy [id number] 13:27:00 Test Item Value Reference Range Interpretation Comments Vitamin D, 69 ng/mL 30-100 Vitamin D Statu s 25-hydroxy (test 25-OH Vitam in D: code = 1988-10) Deficiency: < 20 ng/mLInsufficie ncy : 20 - 29 ng/mLOptimal: > or = 30 ng/mL For 25-OH Vitamin D testing on patients on D2-supplementat ion and patients fo r whom quantitati on of D2 and D3 fractions is required, the QuestAssureD(TM )25 -OH VIT D, (D2,D3), LC/MS/ MS is recommended: order code 9288 8 (patients >2yrs).See Note 1 Note 1 For additional information, please refer to http://[employer] .[employer]cadem[employer] m/faq/AVZ910 (T his link is being provided for informational/e [employer] ational purpose s only.) MARIO ALBERTO (test code = FASTING:YES FASTING: MARIO ALBERTO) YES RAC (test code = Performing RAC) Organization Information: Site ID: WENDY Name: [facility] Address: [address] [place] [phone] Director: Fitzgerald Vianey [facility] hydroxy [id number] 13:27:00 Test Item Value Reference Range Interpretation Comments Vitamin D, 69 ng/mL 30-100 Vitamin D Statu s 25-hydroxy (test 25-OH Vitam in D: code = 1988-10) Deficiency: < 20 ng/mLInsufficie ncy : 20 - 29 ng/mLOptimal: > or = 30 ng/mL For 25-OH Vitamin D testing on patients on D2-supplementat ion and patients fo r whom quantitati on of D2 and D3 fractions is required, the QuestAssureD(TM )25 -OH VIT D, (D2,D3), LC/MS/ MS is recommended: order code 9288 8 (patients >2yrs).See Note 1 Note 1 For additional information, please refer to http://educatio n.Q uestDiagnostics .co m/faq/PJA383 (T his link is being provided for informational/e melissa ational purpose s only.) MARIO ALBERTO (test code = FASTING:YES FASTING: MARIO ALBERTO) YES RAC (test code = Performing RAC) Organization Information: Site ID: WENDY [facility]: [facility] Address: [address] [place] [phone] Director: Fitzgerald Vianey [facility] [id number] 19:19:45 Test Item Value Reference Range Interpretation Comments Case number (test code = [id number]) Surgical pathology See link below for report (test code = PDF Lab Report 2255) Result status (test code This is Final Report = [id number]) [id number] [facility] [id number] 19:19:45 Test Item Value Reference Range Interpretation Comments Case number (test code = [id number]) Surgical pathology See link below for report (test code = PDF Lab Report 2255) Result status (test code This is Final Report = [id number]) for [id number] [facility] ([facility]OVID-19) RNA [Presence] in Respiratory specimen by MONICA with probe [id number] 15:17:00 Test Item Value Reference Range Interpretation Comments SARS-CoV-2 (COVID-19) RNA Not detected Not-Detected [Presence] in Respiratory specimen by MONICA with probe detection (test code = 88560-3)
--- NOTE | 2022-06-03 16:32 | RAD REPORT ---
EXAM DESCRIPTION: RAD - Chest Single View - 06/03/2022 4:09 pm CLINICAL HISTORY: syncope COMPARISON: None TECHNIQUE: AP portable chest image was obtained 06/03/2022 4:09 pm . FINDINGS: Baseline study shows extensive interstitial opacification at each lung base partially obsc uring the hemidiaphragms. Less prominent interstitial stranding is seen in each apex. Consolidated pa renchyma is not seen. Heart and vasculature are normal. No pneumothorax or large pleural effusion. St ernotomy wires are in place. Prominent thoracic spine degenerative changes are present. Degenerative changes are present in each shoulder joint. No acute aortic findings suspected. IMPRESSION: Failure or volume overload are not suspected. Baseline examination shows extensive bibasilar interstitial opacification and most extensive upper john ng field interstitial opacification. Lung parenchymal findings may all be chronic fibrosis. However, as a baseline study, mild or early in filtrates, particularly in the lung bases, cannot be excluded.
--- NOTE | 2022-06-03 16:33 | RAD REPORT ---
EXAM DESCRIPTION: CT - Head Brain Wo Cont - 06/03/2022 4:10 pm CLINICAL HISTORY: syncope COMPARISON: No comparisons TECHNIQUE: Axial 5 mm thick images of the head were obtained without IV contrast. All CT scans are performed using dose optimization technique as appropriate and may include automated exposure control or mA/KV adjustment according to patient size. FINDINGS: No intracranial hemorrhage, mass, edema or shift of mid-line structures. No acute infarcti on changes seen. No abnormal extra-axial fluid collections. Atrophy and chronic ischemic changes are minimal. Ventricles are normal. Mastoid air cells and visualized portions of the paranasal sinuses are clear. No acute bony findings. IMPRESSION: Negative non-contrast CT head examination for acute or significant finding.
[2022-06-03 17:12] LABS: Absolute Lymphocytes (CBC) 0.9 K/uL (0.7-4.9); Hematocrit 37.4 % (36.0-45.0); Lymphocytes % 16.4 % (15.3-44.8); MCV 91.4 fL (80-100); MPV 7.8 fL (7.6-11.3)
[2022-06-03 17:32] LABS: Magnesium 2.4 mg/dL (1.8-2.4); Potassium 4.5 mmol/L (3.5-5.1); Troponin High Sensitivity 8.2 pg/mL (<58.9)
[2022-06-03 17:52] LABS: SARS-CoV-2 Antigen Rapid Res Negative (Negative)
[2022-06-03 18:17] LABS: Protime INR 1.25
[2022-06-03 18:20] LABS: Urine Blood 1+ (Negative); Urine Glucose Negative (Negative); Urine Protein Negative (Negative); Urine Specific Gravity 1.015 (1.005-1.030)
[2022-06-03] MEDS ORDERED: NA CHLORIDE 0.9% 500 ML ONE (18:34)
--- NOTE | 2022-06-03 18:49 | ER ---
Nurse's Notes [facility] Name: Crys Elder Age: 81 yrs Sex: Female : 1940 Arrival Date: 06/03/2022 Time: 15:19 Bed 2 Private MD: Diagnosis: Syncope Presentation: 06/03 15:43 Chief complaint: Patient's son or daughter states: the patient was sitting outside, ap3 when a neighbor saw her laying on the ground, then assisted her back up. patient states she doesn't remember a fall or the neighbors helping her. patient is reportedly on blood thinners, and this was an unwitnessed fall. Coronavirus screen: At this time, the client does not indicate any symptoms associated with coronavirus-19. Ebola Screen: No symptoms or risks identified at this time. Initial Sepsis Screen: Does the patient meet any 2 criteria? No. Patient's initial sepsis screen is negative. Does the patient have a suspected source of infection? No. Patient's initial sepsis screen is negative. Risk Assessment: Do you want to hurt yourself or someone else? Patient reports no desire to harm self or others. Onset of symptoms was June 03, 2022 at 14:00. 15:43 Method Of Arrival: Ambulatory ap3 15:43 Acuity: CALIXTO 3 ap3 Triage Assessment: 15:50 General: Appears comfortable, Behavior is calm, flat, quiet. Pain: Denies pain. Neuro: ap3 Level of Consciousness is awake, alert, obeys commands, Oriented to person, place, time, patient does not remember falling event. Cardiovascular: Patient's skin is warm and dry. Respiratory: Airway is patent Respiratory effort is even, unlabored, Respiratory pattern is regular, symmetrical. Historical: - Allergies: 15:45 No Known Allergies; ap3 - Home Meds: 15:45 Furosemide Oral [Active]; clopidogrel oral [Active]; alendronate 35 mg oral tab ap3 [Active]; carvedilol 6.25 mg oral tab [Active]; Prednisone Oral [Active]; azathioprine 50 mg Oral tab [Active]; Isosorbide Mononitrate Oral [Active]; donepezil oral [Active]; memantine 28 mg oral CSpX [Active]; gabapentin oral [Active]; irbesartan oral [Active]; - Immunization history:: Client reports receiving the 2nd dose of the Covid vaccine. - Social history:: Smoking status: Patient denies any tobacco usage or history of. Screenin:50 Abuse screen: Denies threats or abuse. Nutritional screening: No deficits noted. ap3 Tuberculosis screening: No symptoms or risk factors identified. 18:42 Fall Risk None identified. Fall in past 12 months (25 points). No secondary diagnosis db (0 pts). IV access (20 points). Ambulatory Aid- None/Bed Rest/Nurse Assist (0 pts). Gait- Normal/Bed Rest/Wheelchair (0 pts) Mental Status- Oriented to own ability (0 pts). Total Regalado Fall Scale indicates High Risk Score (45 or more points). Assessment: 17:19 Reassessment: Patient appears in no apparent distress at this time. Patient and/or db family updated on plan of care and expected duration. Pain level reassessed. Patient is alert, oriented x 3, equal unlabored respirations, skin warm/dry/pink. Patient denies pain at this time. Reassessment: Patient found down by a neighbor. Patient remembers being picked up. Denies pain. General: Appears in no apparent distress. comfortable, Behavior is calm, cooperative, appropriate for age, quiet. Neuro: No deficits noted. Neuro: Level of Consciousness is awake, alert, obeys commands, Oriented to person, place, time, Speech is normal, Pupils are PERRLA. Cardiovascular: No deficits noted. Respiratory: No deficits noted. GI: No deficits noted. : No deficits noted. EENT: No deficits noted. Derm: No deficits noted. Musculoskeletal: No deficits noted. 18:05 Reassessment: Patient ambulatory to restroom. db 18:05 Reassessment: Patient appears in no apparent distress at this time. No changes from db previously documented assessment. Patient and/or family updated on plan of care and expected duration. Pain level reassessed. Patient is alert, oriented x 3, equal unlabored respirations, skin warm/dry/pink. Patient denies pain at this time. 18:42 Reassessment: Patient appears in no apparent distress at this time. No changes from db previously documented assessment. Patient and/or family updated on plan of care and expected duration. Pain level reassessed. Patient is alert, oriented x 3, equal unlabored respirations, skin warm/dry/pink. 19:04 Reassessment: Patient appears in no apparent distress at this time. No changes from db previously documented assessment. Patient and/or family updated on plan of care and expected duration. Pain level reassessed. Patient is alert, oriented x 3, equal unlabored respirations, skin warm/dry/pink. Patient denies pain at this time. Vital Signs: 15:43 BP 106 / 63; Pulse 68; Resp 18; Temp 99.0; Pulse Ox 98% ; Weight 65.77 kg; ap3 17:30 BP 140 / 76; Pulse 63; Resp 18; Pulse Ox 99% ; db 18:30 BP 114 / 68; Pulse 62; Resp 18; Pulse Ox 99% ; Pain 0/10; db ED Course: 15:19 Patient arrived in ED. as 15:45 Triage completed. ap3 15:46 Geoff Maldonado PA is PHCP. cp 15:46 Leodan Vanessa MD is Attending Physician. cp 15:51 Arm band placed on right wrist. ap3 16:45 Dea Conrad RN is Primary Nurse. db 17:05 Inserted saline lock: 22 gauge in left antecubital area, using aseptic technique. Blood db collected. 17:30 Patient has correct armband on for positive identification. Placed in gown. Bed in low db position. Call light in reach. Side rails up X 1. 17:30 Warm blanket given. db 19:04 No provider procedures requiring assistance completed. IV discontinued, intact, db bleeding controlled, No redness/swelling at site. Pressure dressing applied. Administered Medications: 18:39 Drug: NS 0.9% 500 ml Route: IV; Rate: calculated rate; Site: left antecubital; db 19:04 Follow up: Response: No adverse reaction; IV Intake: 250ml db 19:07 Follow up: Response: No adverse reaction; IV Status: Completed infusion; IV Intake: db 250ml Medication: 15:51 VIS not applicable for this client. ap3 Intake: 19:07 IV: 250ml; Total: 250ml. db Outcome: 18:49 Discharge ordered by . cp 19:04 Discharged to home ambulatory. db 19:04 Condition: stable 19:04 Discharge instructions given to patient, family, Instructed on discharge instructions, follow up and referral plans. 19:06 Patient left the ED. db Signatures: Tao, Geoff Godfrey PA PA cp Prokisch, Amanda, RN RN ap3 Dea Conrad RN RN db Corrections: (The following items were deleted from the chart) 19:07 19:04 Response: No adverse reaction; IV Intake: 250ml db db
--- NOTE | 2022-06-03 18:49 | EDPHYS ---
Physician Documentation [facility] Name: Crys Elder Age: 81 yrs Sex: Female : 1940 Arrival Date: 06/03/2022 Time: 15:19 Bed 2 Private MD: ED Physician Leodan Vanessa HPI: 06/03 16:00 This 81 yrs old Black Female presents to ER via Ambulatory with complaints of Passed cp Out Prior To Arrival. 16:00 The patient has experienced syncope, lost consciousness. cp 16:00 Onset: The symptoms/episode began/occurred today. Duration: This was a single episode, cp that lasted an unknown period of time. 16:00 Context: occurred at home, outside, occurred while the patient was sitting, Just prior cp to the episode the patient experienced no apparent symptoms. Associated injury: The patient did not suffer any apparent associated injury. Historical: - Allergies: 15:45 No Known Allergies; ap3 - Home Meds: 15:45 Furosemide Oral [Active]; clopidogrel oral [Active]; alendronate 35 mg oral tab ap3 [Active]; carvedilol 6.25 mg oral tab [Active]; Prednisone Oral [Active]; azathioprine 50 mg Oral tab [Active]; Isosorbide Mononitrate Oral [Active]; donepezil oral [Active]; memantine 28 mg oral CSpX [Active]; gabapentin oral [Active]; irbesartan oral [Active]; - Immunization history:: Client reports receiving the 2nd dose of the Covid vaccine. - Social history:: Smoking status: Patient denies any tobacco usage or history of. ROS: 16:05 Constitutional: Negative for body aches, chills, fever, poor PO intake. cp 16:05 Cardiovascular: Negative for chest pain, edema, palpitations. 16:05 Respiratory: Negative for cough, shortness of breath, wheezing. 16:05 Abdomen/GI: Negative for abdominal pain, nausea, vomiting, and diarrhea. 16:05 Neuro: Positive for syncope, Negative for altered mental status, dizziness, headache, syncope, weakness. 16:05 Eyes: Negative for injury, pain, redness, and discharge. cp 16:05 ENT: Negative for drainage from ear(s), ear pain, sore throat, difficulty swallowing, cp difficulty handling secretions. 16:05 Back: Negative for pain at rest, pain with movement. 16:05 : Negative for urinary symptoms, flank pain. 16:05 Skin: Negative for cellulitis, rash. 16:05 All other systems are negative. Exam: 16:10 Constitutional: The patient appears in no acute distress, alert, awake, comfortable, cp non-diaphoretic, non-toxic, well developed, well nourished. 16:10 Head/Face: Normocephalic, atraumatic. cp 16:10 Eyes: Periorbital structures: appear normal, Pupils: equal, round, and reactive to light and accomodation, Extraocular movements: intact throughout, Conjunctiva: normal, no exudate, no injection, Sclera: no appreciated abnormality, Lids and lashes: appear normal, bilaterally. 16:10 ENT: External ear(s): are unremarkable, Ear canal(s): are normal, clear, TM's: dullness, bilaterally, Nose: is normal, Mouth: Lips: moist, Oral mucosa: pink and intact, moist, Posterior pharynx: Airway: no evidence of obstruction, patent, erythema, is not appreciated, exudate, is not appreciated. 16:10 Neck: C-spine: vertebral tenderness, is not appreciated, crepitus, is not appreciated, ROM/movement: is normal, is supple, without pain, no range of motions limitations, no nuchal rigidity. 16:10 Chest/axilla: Inspection: normal, Palpation: is normal, no crepitus, no tenderness. 16:10 Cardiovascular: Rate: normal, Rhythm: regular, Edema: is not appreciated, JVD: is not appreciated. 16:10 Respiratory: the patient does not display signs of respiratory distress, Respirations: normal, no use of accessory muscles, no retractions, labored breathing, is not present, Breath sounds: are clear throughout, no decreased breath sounds, no stridor, no wheezing. 16:10 Abdomen/GI: Inspection: abdomen appears normal, Bowel sounds: active, all quadrants, Palpation: abdomen is soft and non-tender, in all quadrants. 16:10 Back: pain, is absent, ROM is normal. 16:10 Musculoskeletal/extremity: Extremities: all appear grossly normal, with no appreciated pain with palpation, ROM: intact in all extremities. 16:10 Neuro: Orientation: to person, place \T\ time. Mentation: is normal, Cerebellar function: Romberg testing is negative, Motor: moves all fours, strength is normal, Sensation: is normal. 17:18 ECG was reviewed by the Attending Physician. Vital Signs: 15:43 BP 106 / 63; Pulse 68; Resp 18; Temp 99.0; Pulse Ox 98% ; Weight 65.77 kg; ap3 17:30 BP 140 / 76; Pulse 63; Resp 18; Pulse Ox 99% ; db 18:30 BP 114 / 68; Pulse 62; Resp 18; Pulse Ox 99% ; Pain 0/10; db MDM: 16:00 Differential Diagnosis: aortic aneurysm, cardiac arrhythmia, GI bleed, idiopathic cp syncope, seizure, sepsis, vasovagal episode. 16:42 Patient medically screened. 18:45 Data reviewed: vital signs, nurses notes, lab test result(s), EKG, radiologic studies, cp CT scan, plain films. 18:45 Data interpreted: monitor technician: rate is 62 beats/min, rhythm is normal sinus rhythm, cp Pulse oximetry: on room air is 99 %. Interpretation: normal. Plan: O2 by NC applied. Test interpretation: by ED physician or midlevel provider: ECG, plain radiologic studies. 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 18:49 Response to treatment: the patient's symptoms have markedly improved after treatment, cp VSS. Discussed results of labs, EKG and radiology studies. Recommendation for observation here in hospital. Patient declines at this time and requests discharge to home accompanied by sister. Patient is of able mind and able to make informed decisions. 06/03 15:51 Order name: Basic Metabolic Panel cp 06/03 15:51 Order name: CBC with Diff cp 06/03 15:51 Order name: Magnesium cp 06/03 15:51 Order name: NT PRO-BNP cp 06/03 15:51 Order name: PT-INR cp 06/03 15:51 Order name: Troponin HS cp 06/03 16:45 Order name: SARS RAPID cp 06/03 16:45 Order name: Urine Microscopic Only cp 06/03 17:17 Order name: CBC with Automated Diff; Complete Time: 17:43 EDMS 06/03 17:44 Interpretation: Normal except: PLT 149. cp 06/03 17:33 Order name: Basic Metabolic Panel; Complete Time: 17:43 EDMS 06/03 17:44 Interpretation: Normal except: GLUC 118; BUN 24; CRE 1.42; GFR 37. cp 06/03 17:33 Order name: Troponin High Sensitivity; Complete Time: 17:43 EDMS 06/03 17:33 Order name: NT PRO-BNP; Complete Time: 17:43 EDMS 06/03 17:33 Order name: Magnesium; Complete Time: 17:43 EDMS 06/03 17:52 Order name: SARS-COV-2 Antigen Rapid; Complete Time: 18:22 EDMS 06/03 15:51 Order name: CT Head Brain wo Cont cp 06/03 15:51 Order name: XRAY Chest (1 view) cp 06/03 15:51 Order name: EKG; Complete Time: 15:52 06/03 15:51 Order name: Cardiac monitoring; Complete Time: 17:19 cp 06/03 15:51 Order name: EKG - Nurse/Tech; Complete Time: 17:19 06/03 15:51 Order name: IV Saline Lock; Complete Time: 17:19 06/03 15:51 Order name: Labs collected and sent; Complete Time: 17:19 06/03 15:51 Order name: O2 Per Protocol; Complete Time: 17:19 06/03 15:51 Order name: O2 Sat Monitoring; Complete Time: 17:19 cp 06/03 16:33 Order name: RAD; Complete Time: 16:43 EDMS 06/03 16:45 Interpretation: Report reviewed. cp 06/03 16:33 Order name: CT; Complete Time: 16:43 EDMS 06/03 16:46 Interpretation: Report reviewed. cp 06/03 16:45 Order name: Urine Dipstick-Ancillary (obtain specimen); Complete Time: 18:40 cp 06/03 18:17 Order name: Protime (+INR); Complete Time: 18:22 EDMS 06/03 18:23 Interpretation: Normal except: PT 13.8. cp 06/03 18:20 Order name: Urine Dipstick-Ancillary; Complete Time: 18:22 EDMS 06/03 18:23 Interpretation: Normal except: UBLD 1+; UESTR Trace. cp 06/03 18:57 Order name: Urine Microscopic Only EDMS 06/03 17:14 Order name: Labs - recollect needed: recollect light blue top; Complete Time: 17:19 bd EC:18 Rate is 60 beats/min. Rhythm is regular. VT interval is normal. QRS interval is normal. cp QT interval is normal. T waves are Inverted in lead aVR. Interpreted by me. Reviewed by me. 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 I agree with assessment [id number] and care plan and confirm the diagnosis (es) above. Attestation: The patient's history, exam findings, diagnostics, and a summary of any interventions or procedures was reviewed in detail with Geoff BOLANOS. Disposition Summary: 06/03/22 18:49 Discharge Ordered Location: Home cp Problem: new cp Symptoms: have improved cp Condition: Stable cp Diagnosis - Syncope cp Followup: cp - With: Private Physician - When: 1 - 2 days - Reason: Recheck today's complaints Discharge Instructions: - Discharge Summary Sheet cp - Syncope cp Forms: - Medication Reconciliation Form cp - Thank You Letter cp - Antibiotic Education cp - Prescription Opioid Use cp Signatures: Dispatcher [employer] EDVT Nicky Herndon Geoff Maldonado PA PA cp Yuridia Estevez RN RN ap3 Leodan Vanessa MD MD [id number] Dea Conrad RN RN db Corrections: (The following items were deleted from the chart) 15:29 06/02 16:05 Constitutional: Negative for body aches, chills, fever, poor PO intake, cp cp 06/04 15:29 06/02 16:05 Cardiovascular: Negative for chest pain, edema, palpitations, cp cp 06/04 15:06/02 16:05 Respiratory: Negative for cough, shortness of breath, wheezing, cp cp 06/04 15:29 06/02 16:05 Abdomen/GI: Negative for abdominal pain, nausea, vomiting, and diarrhea, cp cp 06/04 15:06/02 16:05 Neuro: Positive for syncope, Negative for altered mental status, dizziness, cp headache, syncope, weakness, cp
[2022-06-03 18:57] LABS: Urine Bacteria <20 /HPF (<20); Urine Crystals Unidentified Few /HPF (None Seen); Urine Mucus Slight /HPF (None Seen); Urine WBC Clump Rare /HPF (None Seen)
[2022-06-03 19:20] VITALS: TEMP 99
[2022-06-03 19:26] VITALS: O2SAT 99
[2022-06-03 19:32] VITALS: BP 114/68
--- NOTE | 2022-06-04 06:25 | EKG ---
Test Date: 2022-06-03 Test Time: 17:16:33 Lap Grinder: EVELYN MEASUREMENT RESULTS: Intervals: Rate: 60 SC: 136 QRSD: 82 QT: 418 QTc: 418 [place]: P: 63 SC: 136 QRS: 9 T: 71 INTERPRETIVE STATEMENTS: Normal sinus rhythm Normal ECG No previous ECG available for comparison Electronically Signed On 06-04-22 06:25:07 CDT by Artis Garcia
== END 2022-06-03 19:06 | disposition home or self-care (01) ==
LOC: ER 15:17
DX: R55 Syncope and collapse (principal); Z20.822 Contact with and (suspected) exposure to COVID-19
CPT/HCPCS: 93005; 85025; 80048; 36415; 83735; 85610; 84484; 83880; 70450; 71045; 99283; 87811; J7040; 81003; 81015